=== PATIENT | female | born 1945 | race Caucasian/White ===

== ENCOUNTER → 2019-10-26 12:20 | Outpatient (CLI) | payer MEDICARE, SELFPAY ==
--- NOTE | 2019-10-26 12:40 | ECG_ITS ---
APPROVED REPORT Exam: Resting ECG HR:92 bpm ECG Measurements Heart Rate 92 AXES LA 170 P 9 QRSd 90 QRS -74 QT 378 T 13 QTc 467 <Conclusion> Normal sinus rhythm Left axis deviation Isolated q in iii old r wave progression delay Abnormal ECG Electronically signed by : Norris Livingston, 10/29/2019 07:17:17
[2019-10-26 12:46] LABS: MANUAL DIFFERENTIAL MANUAL DIFFERENTIAL (MANUAL DIFF)
--- NOTE | 2019-10-26 13:04 | XR_ITS ---
PROCEDURE: XR CHEST 2V CLINICAL HISTORY: LT SIDED CHEST PAIN COMPARISON: CXR1 CHEST-PORTABLE from 05/24/2014 CTAC CTA-CHEST from 11/13/2014 CXR CHEST(2 VIEWS-NOT PORTABLE) from 11/19/2014 CXR CHEST(2 VIEWS-NOT PORTABLE) from 05/01/2015 FINDINGS: The cardiomediastinal silhouette and pulmonary vascularity are within normal limits. There is a small hiatal hernia. There is mild biapical pleural thickening. No lobar consolidation or collapse No acute bony abnormalities. IMPRESSION: No change with no acute finding. Small hiatal hernia Dictated by: Chavez Barbosa MD 10/26/2019 13:23 Electronically signed by Chavez Barbosa MD in [place] 10/26/2019 13:23
[2019-10-26 13:09] LABS: Basophils # 0.1 K/mm3 (0-0.2); Basophils % 1.4 % (0.1-2.0); Eosinophils # 0.2 K/mm3 (0.0-0.4); Eosinophils % 3.1 % (0.1-12.0); Hematocrit 42.8 % (37.0-47.0); Lymphocytes # 2.1 K/mm3 (0.7-4.5); Mean Corpuscular HGB Conc 35.2 g/dL (31.8-35.4); Mean Corpuscular Hemoglobin 31.2 pg (27.0-31.2); Mean Corpuscular Volume 88.6 fl (81-99); Mean Platelet Volume 7.1 fl (7.4-10.4); Monocytes # 0.5 K/mm3 (0.1-1.0); Monocytes % 6.4 % (1.7-9.3); Neutrophils # 4.4 K/mm3 (1.8-7.8); Neutrophils % 60.1 % (37.0-80.0); Platelet Count 292 K/mm3 (142-424); Red Blood Count 4.83 M/mm3 (4.20-5.40); Red Cell Distribution Width 13.9 % (11.5-17.5); White Blood Count 7.3 K/mm3 (4.8-10.8)
[2019-10-26 13:32] LABS: Eosinophils % 3 % (0-3); Lymphocytes % 29 % (10-50); Monocytes % 4 % (2-9); Neutrophils % 64 % (42-76); Platelet Estimate Normal; RBC Morphology Normal; Total Cells Counted 100
[2019-10-26 13:33] LABS: Erythrocyte Sedimentation Rate 18 mm/hr (0-30)
[2019-10-26 15:10] LABS: Chloride 101 mmol/L (98-107)
[2019-10-26 15:11] LABS: Potassium 4.2 mmoL/L (3.5-5.1); Sodium 138 mmol/L (136-145)
[2019-10-26 15:13] LABS: Alanine Aminotransferase 14 U/L (12-78); Alkaline Phosphatase 96 U/L (38-126); Aspartate Amino Transferase 24 U/L (14-36); Bilirubin,Total 0.5 mg/dl (0.2-1.3); Blood Urea Nitrogen 15 mg/dl (7-17); Estimated Glomerular Filt Rate 82 ml/min (>60); GFR (African American) 99 ML/MIN (>60)
[2019-10-26 15:14] LABS: Albumin Level 4.4 g/dl (3.5-5.0); Albumin/Globulin Ratio 1.6 (1.1-1.8); Anion Gap 16.2 mEq/L (5-15); Calcium 9.8 mg/dl (8.4-10.2); Carbon Dioxide 25 mmol/L (22.0-30.0); Globulin 2.8 g/dL (1.3-3.2); Glucose 83 mg/dl (74-100); Total Protein,Serum 7.2 g/dl (6.3-8.2)
[2019-10-26 15:20] LABS: C-Reactive Protein 3.2 mg/L (0-4)
[2019-10-26 15:30] LABS: Troponin I < 0.01 ng/ml (0.00-0.034)
[2019-10-26 15:45] LABS: Thyroid Stimulating Hormone 2.68 uIU/mL (0.465-4.68)
== END ==
PROVIDERS: PCP Family Medicine; Visit Provider Nurse Practitioner
DX: R07.9 Chest pain, unspecified (principal)
CPT/HCPCS: 36415; 71046; 80053; 84443; 84484; 85007; 85014; 85018; 85048; 85049; 85651; 86140; 93005

== ENCOUNTER → 2020-02-27 09:34 | Outpatient (CLI) | payer MEDICARE, SELFPAY ==
--- NOTE | 2020-02-27 09:37 | XR_ITS ---
PROCEDURE: XR DEXA AXIAL SKELETON CLINICAL HISTORY: POST MENOPAUSAL COMPARISON: No exams were available for comparison FINDINGS: The right hip BMD is 0.676 with a T-score of -1.6. The left hip BMD is 0.710 with a T-score of -1.9. The lumbar spine BMD is 1.080 with a T-score of 0.3. IMPRESSION: This patient is considered osteopenic according to the World Health Organization criteria. Bone density is between 10 and 25 percent below young normal. Fracture risk is moderate. Treatment is advised. Based on these results a follow-up exam is recommended in 2 year. Dictated by: Chavez Barbosa MD 02/27/2020 19:12 Chavez Barbosa MD in [facility] 02/28/2020 08:10
== END ==
PROVIDERS: PCP Family Medicine; Visit Provider Family Medicine
DX: Z78.0 Asymptomatic menopausal state (principal); M85.89 Other specified disorders of bone density and structure, multiple sites
CPT/HCPCS: 77080

== ENCOUNTER → 2020-04-18 12:15 | Outpatient (CLI) | payer MEDICARE, SELFPAY ==
[2020-04-18 13:45] LABS: Basophils % 1.2 % (0.1-2.0); Eosinophils % 0.5 % (0.1-12.0); Hematocrit 44.2 % (37.0-47.0); Hemoglobin 14.6 g/dL (12.2-16.2); Lymphocytes # 0.7 K/mm3 (0.7-4.5); Lymphocytes % 19.6 % (10-50); Mean Corpuscular HGB Conc 32.9 g/dL (31.8-35.4); Mean Platelet Volume 7.4 fl (7.4-10.4); Monocytes # 0.4 K/mm3 (0.1-1.0); Monocytes % 9.8 % (1.7-9.3); Neutrophils # 2.6 K/mm3 (1.8-7.8); Neutrophils % 68.9 % (37.0-80.0); Platelet Count 221 K/mm3 (142-424); Red Blood Count 4.86 M/mm3 (4.20-5.40); Red Cell Distribution Width 14.1 % (11.5-17.5); White Blood Count 3.8 K/mm3 (4.8-10.8)
[2020-04-18 14:40] LABS: Strep Scrn Group A (Rapid) Negative (Negative)
[2020-04-19 10:02] LABS: Covid-19 Nasal PCR Sendout Lex POSITIVE
== END ==
PROVIDERS: PCP Family Medicine; Visit Provider Nurse Practitioner
DX: Z20.828 Contact with and (suspected) exposure to other viral communicable diseases (principal); U07.1 COVID-19
CPT/HCPCS: 36415; 85025; 87430; U0004

== ENCOUNTER → 2021-01-14 10:13 | Outpatient (CLI) | payer MEDICARE, SELFPAY ==
[2021-01-14 10:46] LABS: Blood Urea Nitrogen 14 mg/dl (7-17); Estimated Glomerular Filt Rate 81 ml/min (>60); GFR (African American) 98 ML/MIN (>60)
--- NOTE | 2021-01-14 10:52 | CT_ITS ---
PROCEDURE: CT ABDOMEN PELVIS W CON CLINICAL INDICATION: LLQ PAIN,H/O DIVERTICULITIS COMPARISON: No exams were available for comparison TECHNIQUE: IV Contrast: 75ML Isovue 370 Oral Contrast None Axial images obtained with sagittal and coronal reformats. All CT scans at the facility use one or more dose reduction, viz: automated exposure control, ma/kV adjustment per patient size (including targeted exams where dose is matched to indication, i.e. head), or iterative reconstruction technique. FINDINGS: LOWER THORAX: No acute finding ABDOMEN & PELVIS: The liver, spleen, pancreas, and adrenal glands are unremarkable. Small bilateral renal cysts with mild prominence of the renal pelves. The gallbladder is distended. No radiopaque stones apparent. Postsurgical changes along the central aspect of the upper abdomen at the subdiaphragmatic region. Prior appendectomy. Extensive colonic diverticulosis is present. No evidence of diverticulitis. Prior hysterectomy. No pelvic mass or abnormal fluid collection.. No acute bony findings. IMPRESSION: No acute finding. Colonic diverticulosis. No evidence of diverticulitis. Dictated by: Chavez Barbosa MD 01/15/2021 08:39 Chavez Barbosa MD in [facility] 01/15/2021 08:39
== END ==
PROVIDERS: PCP Family Medicine; Visit Provider Nurse Practitioner
DX: R10.32 Left lower quadrant pain (principal); Z87.19 Personal history of other diseases of the digestive system
CPT/HCPCS: 36415; 74177; 82565; 84520; Q9967

== ENCOUNTER → 2021-05-30 14:08 | Outpatient (CLI) | payer MEDICARE, SELFPAY ==
[2021-05-30 14:34] LABS: Adenovirus,PCR Not Detected (NotDetected); Bordetella Pertussis Not Detected (NotDetected); Chlamydophila Pneumoniae, PCR Not Detected (NotDetected); Coronavirus 19, PCR Not Detected (NotDetected); Coronavirus 229E Not Detected (NotDetected); Coronavirus NL63 Not Detected (NotDetected); Coronavirus OC43 Not Detected (NotDetected); Coronovirus HKU1,PCR Not Detected (NotDetected); Influenza A, PCR Not Detected (NotDetected); Influenza AH1, 2009 Not Detected (NotDetected); Influenza AH1, PCR Not Detected (NotDetected); Influenza AH3,PCR Not Detected (NotDetected); Influenza B, PCR Not Detected (NotDetected); Mycoplasma Pneumoniae, PCR Not Detected (NotDetected); Parainfluenza 1, PCR Not Detected (NotDetected); Parainfluenza 2, PCR Not Detected (NotDetected); Parainfluenza 3, PCR Not Detected (NotDetected); Parainfluenza 4, PCR Not Detected (NotDetected); Respiratory Syncytial Virus Not Detected (NotDetected); Rhinovirus/Enterovirus Not Detected (NotDetected)
[2021-05-30 14:40] LABS: Basophils # 0.2 K/mm3 (0-0.2); Basophils % 2.8 % (0.1-2.0); Eosinophils # 0.2 K/mm3 (0.0-0.4); Eosinophils % 2.8 % (0.1-12.0); Hematocrit 43.2 % (37.0-47.0); Hemoglobin 13.9 g/dL (12.2-16.2); Lymphocytes % 28.6 % (10-50); Mean Corpuscular HGB Conc 32.2 g/dL (31.8-35.4); Mean Corpuscular Hemoglobin 29.9 pg (27.0-31.2); Mean Corpuscular Volume 92.6 fl (81-99); Mean Platelet Volume 7.4 fl (7.4-10.4); Monocytes # 0.4 K/mm3 (0.1-1.0); Neutrophils # 4.1 K/mm3 (1.8-7.8); Neutrophils % 59.8 % (37.0-80.0); Platelet Count 284 K/mm3 (142-424); Red Blood Count 4.66 M/mm3 (4.20-5.40); Red Cell Distribution Width 13.5 % (11.5-17.5); White Blood Count 6.9 K/mm3 (4.8-10.8)
[2021-05-30 17:25] LABS: Human Metapneumovirus Detected (NotDetected)
== END ==
PROVIDERS: PCP Family Medicine; Visit Provider Physician Assistant
DX: Z20.822 Contact with and (suspected) exposure to COVID-19 (principal); B97.81 Human metapneumovirus as the cause of diseases classified elsewhere
CPT/HCPCS: 36415; 85025; 87581; 87632; 87798; C9803; U0003; U0005

== ENCOUNTER → 2021-06-29 12:48 | Outpatient (CLI) | payer MEDICARE, SELFPAY | PROVIDERS: Visit Provider Nurse Practitioner | DX: U07.1 COVID-19 (principal) | CPT/HCPCS: C9803; U0003; U0005 ==

== ENCOUNTER → 2021-07-31 13:19 | Outpatient (CLI) | payer MEDICARE, SELFPAY ==
--- NOTE | 2021-07-31 13:25 | XR_ITS ---
FINAL REPORT CLINICAL HISTORY: COUGH for 1 month COMPARISON: October 26, 2019 FINDINGS: Two views of the chest were obtained. The heart size and pulmonary vascularity are within normal limits. There is a small hiatal hernia. There is mild bibasilar atelectasis or scarring. There is no pneumothorax. Postoperative changes are seen in the right humeral head. IMPRESSION: Mild bibasilar atelectasis or scarring. Reviewed, Interpreted and Dictated by Marck Glasgow III, MD Transcribed by Antonio Martinez Authenticated by Marck Glasgow III, MD on 07/31/2021 04:18:25 PM [facility]
== END ==
PROVIDERS: PCP Family Medicine; Visit Provider Nurse Practitioner
DX: R05.9 Cough, unspecified (principal)
CPT/HCPCS: 71046

== ENCOUNTER 2021-12-14 10:29 | Emergency (ER) | payer MEDICARE, SELFPAY ==
[2021-12-14 10:36] VITALS: BP 134/61; PULSE 74; RESP 16; TEMP 37.1; O2SAT 98; BMI 25.4
[2021-12-14 10:46] VITALS: BP 134/61; PULSE 74; RESP 16; TEMP 37.1; O2SAT 98; BMI 25.2
--- NOTE | 2021-12-14 11:03 | HMH.EDUTC ---
[facility] [place] Disposition Clinical Impression: Viral syndrome Infected insect bite Qualifiers: Encounter type: initial encounter Qualified Code(s): W57.XXXA - Bitten or stung by nonvenomous insect and other nonvenomous arthropods, initial encounter Disposition: Home, Self-Care Condition on Discharge: Good Instructions: Insect Bites and Stings, Protect Yourself from Tickborne Illnesses Additional Instructions: Keep the affected area clean and dry. Follow up with your regular doctor. Take the antibiotics as directed and apply the topical antibiotics as directed. Apply warm wet compresses to the affected area three or four times per day. GO TO THE ER FOR ANY WORSENING SYMPTOMS Prescriptions: Mupirocin [Bactroban 2% Ointment 22gm tube] 1 applicatio TP TID 7 Days #1 gm Transmission Status: Received by [id number] Doxycycline Monohydrate [Doxycycline Mccracken 100mg Tab] 100 mg PO Q12 10 Days #20 tab Transmission Status: Received by [id number] Referrals: Fernando Matson MD [Primary Care Provider] - Time of Disposition: 11:19 Medical Decision Making - Medical Records Medical records reviewed: No: I reviewed the patient's medical records. - John Paul Inquiry Pt receiving controlled substance: No Vital Signs: 12/14/21 10:36 12/14/21 10:46 12/14/21 11:20 Temperature 98.8 F 98.8 F 98.8 F Temperature Source Oral Oral Oral Pulse Rate 74 Pulse Rate [Brachial] 74 74 Respiratory Rate 16 16 16 Blood Pressure 134/60 Blood Pressure [Right Arm] 134/61 134/61 Blood Pressure Mean [Right Arm] 85 85 Blood Pressure Source Automatic Cuff Blood Pressure Source [Right Arm] Automatic Cuff Blood Pressure Position Sitting Blood Pressure Position [Right Arm] Sitting Sitting 02 Sat by Pulse Oximetry 98 98 Oxygen Delivery Method Room Air Room Air Room Air Orders (Tests/Meds): ED MEDICATIONS Discontinued Medications Generic Name Dose Route Start Last Admin Trade Name Freq PRN Reason Stop Dose Admin Ceftriaxone Sodium 1 gm 12/14/21 11:02 12/14/21 11:16 Ceftriaxone 1gm Vial IM 12/14/21 11:03 1 gm ONCE ONE Administration Lidocaine HCl 0 ml 12/14/21 11:02 12/14/21 11:16 Lidocaine 1% 5ml Pf Vial IM 12/14/21 11:03 2 ml ONCE ONE Administration Medical Decision Narrative: She refused a covid-19 test despite being explained to that some of her symptoms sound to be from a viral infection. [facility] [place] HPI - General Stated complaint: bite on side of right leg, has pain Time Seen by Provider: 12/14/21 11:03 Mode of Arrival: Ambulatory Source of Information: Patient Limitations: No Limitations Description of Symptoms (Recalled from Triage Doc. by RN): pt c/o pain, bug bite rt upper leg, c/o pain shoulders took tylenol without relief HEENT Symptoms (Recalled from RN notes): No Resp Symptoms (Recalled from RN notes): No Skin Symptoms (Recalled from RN notes): Yes (bite on right leg) MS Symptoms (Recalled from RN notes): No Functional Status (Recalled from RN notes): na - History of Present Illness Provider Complaint: She states that for the past 2 days she has had a red area on her right upper leg. She believes that this is an infected insect bite. She also states that she is having generalized malaise and headache. She denies fever. She denies any cough or congestion. - Related Data Home Medications Medication Instructions Recorded Confirmed albuterol sulfate 90 mcg/actuation g IH 12/04/21 12/04/21 aerosol inhaler atorvastatin 10 mg tablet 10 mg PO DAILY tab 12/04/21 12/04/21 fluticasone propionate 50 g NS 12/04/21 12/04/21 mcg/actuation nasal spray,suspension loratadine 10 mg tablet 10 mg PO DAILY tab 12/04/21 12/04/21 Previous Rx's Medication Instructions Recorded hyoscyamine sulfate 0.125 mg tablet 0.125 mg PO QID PRN #60 tab 12/04/21 metronidazole 500 mg tablet 500 mg PO TID #30 tab 12/04/21 Doxycycline Monohydrate 100 mg
[2021-12-14 11:20] VITALS: BP 134/60; PULSE 74; RESP 16; TEMP 37.1; O2SAT 98
== END 2021-12-14 11:25 | disposition home or self-care (01) ==
PROVIDERS: Emergency Provider Nurse Practitioner Family; PCP Family Medicine
DX: B34.9 Viral infection, unspecified (principal); W57.XXXA Bitten or stung by nonvenomous insect and other nonvenomous arthropods, initial encounter; M79.651 Pain in right thigh; M25.511 Pain in right shoulder; M25.512 Pain in left shoulder
CPT/HCPCS: 96372; 99212; G0463; J0696

== ENCOUNTER → 2022-01-12 13:40 | Outpatient (CLI) | payer MEDICARE, SELFPAY ==
[2022-01-12 15:12] LABS: Basophils # 0.1 K/mm3 (0-0.2); Basophils % 1.6 % (0.1-2.0); Eosinophils # 0.2 K/mm3 (0.0-0.4); Eosinophils % 2.6 % (0.1-12.0); Hematocrit 42.3 % (37.0-47.0); Hemoglobin 13.4 g/dL (12.2-16.2); Lymphocytes # 1.2 K/mm3 (0.7-4.5); Lymphocytes % 17.2 % (10-50); Mean Corpuscular HGB Conc 31.7 g/dL (31.8-35.4); Mean Corpuscular Hemoglobin 29.5 pg (27.0-31.2); Mean Corpuscular Volume 93.3 fl (81-99); Mean Platelet Volume 7.7 fl (7.4-10.4); Monocytes # 0.5 K/mm3 (0.1-1.0); Monocytes % 6.9 % (1.7-9.3); Neutrophils # 5.1 K/mm3 (1.8-7.8); Neutrophils % 71.6 % (37.0-80.0); Platelet Count 272 K/mm3 (142-424); Red Blood Count 4.54 M/mm3 (4.20-5.40); Red Cell Distribution Width 13.9 % (11.5-17.5); White Blood Count 7.1 K/mm3 (4.8-10.8)
--- NOTE | 2022-01-12 15:29 | XR_ITS ---
FINAL REPORT CLINICAL HISTORY: COVID TESTING COMPARISON: 07/31/2021 FINDINGS: A single view of the chest was obtained. The heart is normal in size. The mediastinum is unremarkable. There is partially improved aeration of the lung bases. There is persistent mild bibasilar atelectasis or scarring. There is no pleural effusion. There is no pneumothorax. There is presumed postoperative change in the right humeral head. IMPRESSION: Persistent mild bibasilar atelectasis or scarring with partially improved aeration at the lung bases. Reviewed, Interpreted and Dictated by Marck Glasgow III, MD Transcribed by Carolina Cintron Authenticated and [facility]
== END ==
PROVIDERS: PCP Family Medicine; Visit Provider Nurse Practitioner Family
DX: Z20.822 Contact with and (suspected) exposure to COVID-19 (principal)
CPT/HCPCS: 36415; 71045; 85025; C9803; U0003; U0005

== ENCOUNTER → 2022-02-05 16:19 | Outpatient (CLI) | payer MEDICARE, SELFPAY ==
--- NOTE | 2022-02-05 16:25 | XR_ITS ---
PROCEDURE INFORMATION: Exam: XR Cervical Spine Exam date and time: 02/05/2022 4:28 PM Age: 76 years old Clinical indication: Pain; Cervicalgia TECHNIQUE: Imaging protocol: Radiologic exam of the cervical spine. Views: 4 or 5 views. COMPARISON: CR XR CHEST PORTABLE 01/12/2022 3:41 PM FINDINGS: Bones/joints: Cervical spondylosis. Advanced changes of disc degeneration at C5-C6 with prominent posterior osteophytic ridge formation. Moderately severe right C5-C6, mild-moderate right C3-C4 and C4-C5 neural foraminal stenosis. Soft tissues: Unremarkable. IMPRESSION: 1. No evidence of acute osseous injury. 2. Cervical spondylosis with multilevel neural foraminal stenosis most pronounced on the right at C5-C6.
== END ==
PROVIDERS: PCP Family Medicine; Visit Provider Family Medicine
DX: M54.2 Cervicalgia (principal)
CPT/HCPCS: 72050

== ENCOUNTER 2022-02-18 14:12 | Emergency (ER) | payer MEDICARE, SELFPAY ==
[2022-02-18] VITALS (8 sets, daily range): BP systolic 122–177; BP diastolic 69–98; PULSE 63–89; RESP 18; TEMP 36.7; O2SAT 93–97; BMI 25.7
--- NOTE | 2022-02-18 14:07 | ECG_ITS ---
APPROVED REPORT Exam: Resting ECG HR:83 bpm ECG Measurements Heart Rate 83 AXES TX 176 P 12 QRSd 96 QRS -62 QT 388 T 14 QTc 428 Conclusion SINUS RHYTHM LEFT AXIS DEVIATION Late r wave progression - old finding ABNORMAL ECG UNCONFIRMED REPORT Electronically signed by : Norris Livingston MD 02/18/2022 17:41:20
--- NOTE | 2022-02-18 14:22 | XR_ITS ---
FINAL REPORT CLINICAL HISTORY: sob COMPARISON: January 12, 2022 FINDINGS: The heart size is normal. The mediastinum is normal. There is no focal infiltrate or edema. There are no pleural effusions. There is no pneumothorax. There is no osseous abnormality. IMPRESSION: No acute cardiopulmonary process Reviewed, Interpreted and Dictated by Eleazar Prater MD Transcribed by Antonio Martinez Authenticated and [facility]
--- NOTE | 2022-02-18 14:52 | HMH.EDCP ---
Discharge Plan Disposition Patient Disposition: Home, Self-Care Condition: Good Prescriptions Prescriptions: No Action atorvastatin 10 mg tablet 10 mg PO DAILY Label Comments: TAKE 1 TABLET BY MOUTH EVERY DAY FOR 90 DAYS loratadine 10 mg tablet 10 mg PO DAILY Label Comments: TAKE 1 TABLET BY MOUTH EVERY DAY FOR 30 DAYS fluticasone propionate 50 mcg/actuation spray,suspension NS albuterol sulfate 90 mcg/actuation HFA aerosol inhaler IH Label Comments: 2 PUFF(S) INHALED EVERY 6 HOURS AND NEEDED FRO SHORTNESS OF BREATH OR WHEEZING 30 DAY(S) hyoscyamine sulfate 0.125 mg tablet 0.125 mg PO QID PRN (Reason: diarrhea or abdominal cramping) Qty: 60 0RF mupirocin 22 GM ointment 1 applicatio TP TID 7 Days Qty: 1 0RF doxycycline monohydrate 100 MG tablet 100 mg PO Q12 10 Days Qty: 20 0RF Referrals Follow up/Referrals: Provider,Referral, MD [Referring] - See instructions Activity Restrictions/Add. Instructions Additional Instructions/Restrictions: Follow-up with primary care physician within the next few days. Return for worsening pain or any other concerns within 8 hours Clinical Impressions Clinical Impression: Chest pain Discharge ED Provider: Chucho Medina Chest Pain HPI General Chief Complaint: Chest Pain Stated Complaint: chest pain Time Seen by Provider: 02/18/22 14:15 History of Present Illness HPI narrative: 76-year-old female presents with left-sided pleuritic chest pain. She says the pain is intermittent and feels like a spasm is worse when she presses on her chest. No fever or chills however she does have persistent cough for the last day she is concerned that it could be related to bronchitis. Chest pain is nonexertional no diaphoresis. No nausea or vomiting associated with it. Not coughing up blood or history of blood clots. Chest pain is not radiating to back or severe in onset BARBIE Score for Non-Stemi Age of Patient: 70-79 years old Heart Rate: 70-89 bpm Systolic Blood Pressure: 100-119 mmHg CHF Killip Class: I-No CHF Other Risk Factors: None Related Data Home Medications Medication Instructions Recorded Confirmed albuterol sulfate 90 mcg/actuation g inhalation 12/04/21 12/15/21 aerosol inhaler atorvastatin 10 mg tablet 10 mg PO DAILY 12/04/21 12/15/21 fluticasone propionate 50 g intranasal 12/04/21 12/15/21 mcg/actuation nasal spray,suspension loratadine 10 mg tablet 10 mg PO DAILY 12/04/21 12/15/21 Previous Rx's Medication Instructions Recorded hyoscyamine sulfate 0.125 mg tablet 0.125 mg PO QID PRN diarrhea or 12/04/21 abdominal cramping #60 tabs doxycycline monohydrate 100 mg 100 mg PO Q12 10 days #20 tabs 12/14/21 tablet mupirocin 2 % topical ointment 1 applicatio topical TID 7 days ##1 12/14/21 Allergies Allergy/AdvReac Type Severity Reaction Status Date / Time barium iodide [BARIUM IODIDE] Allergy Mild Verified 02/18/22 14:53 BLUEBERRY Allergy Mild Uncoded 12/15/21 15:07 [facility] Social History Smoking Status: Never smoker alcohol intake: never current occupational status: retired Travel in the last 8 weeks: None ROS Obtained: Yes All systems reviewed & no additional complaints except as documented Physical Exam General General appearance: alert and in no apparent distress Eye Eye exam: Present PERRL and EOMI ENT ENT exam: Present normal exam and normal oropharynx Neck Neck exam: Present normal inspection Chest Chest inspection: Present symmetric chest wall rise and other (Tenderness to pressing on chest wall) Respiratory Respiratory exam: Present normal lung sounds bilaterally; Absent respiratory distress Cardiovascular Cardiovascular exam: Present regular rate and normal rhythm Abdominal Exam Abdominal exam: Present soft; Absent distention, tenderness, guarding, rebound, Santiago's sign or tenderness at McBurney's Point Back Exam Back exam: Present normal inspec
[2022-02-18 14:57] LABS: Basophils # 0.1 K/mm3 (0-0.2); Eosinophils # 0.2 K/mm3 (0.0-0.4); Eosinophils % 2.8 % (0.1-12.0); Hematocrit 44.3 % (37.0-47.0); Hemoglobin 14.1 g/dL (12.2-16.2); Lymphocytes # 2.2 K/mm3 (0.7-4.5); Lymphocytes % 31.2 % (10-50); Mean Corpuscular HGB Conc 31.8 g/dL (31.8-35.4); Mean Corpuscular Hemoglobin 29.9 pg (27.0-31.2); Mean Corpuscular Volume 93.9 fl (81-99); Mean Platelet Volume 7.9 fl (7.4-10.4); Monocytes # 0.5 K/mm3 (0.1-1.0); Monocytes % 6.9 % (1.7-9.3); Neutrophils # 3.9 K/mm3 (1.8-7.8); Platelet Count 297 K/mm3 (142-424); Red Blood Count 4.72 M/mm3 (4.20-5.40); Red Cell Distribution Width 14.1 % (11.5-17.5); White Blood Count 6.9 K/mm3 (4.8-10.8)
[2022-02-18 15:00] LABS: Alanine Aminotransferase 19 U/L (12-78); Albumin Level 4.1 g/dl (3.5-5.0); Albumin/Globulin Ratio 1.4 (1.1-1.8); Alkaline Phosphatase 130 U/L (38-126); Aspartate Amino Transferase 32 U/L (14-36); Blood Urea Nitrogen 19 mg/dl (7-17); Calcium 8.7 mg/dl (8.4-10.2); Carbon Dioxide 23 mmol/L (22.0-30.0); Chloride 103 mmol/L (98-107); Estimated Glomerular Filt Rate 70 ml/min (>60); GFR (African American) 84 ML/MIN (>60); Glucose 90 mg/dl (74-100); Sodium 137 mmol/L (136-145); Total Protein,Serum 7.1 g/dl (6.3-8.2)
[2022-02-18 15:03] LABS: Bilirubin,Total < 0.1 mg/dl (0.2-1.3)
[2022-02-18 15:04] LABS: D-Dimer 0.46 ug/mL (0.0-0.5)
[2022-02-18 15:13] LABS: Troponin I < 0.01 ng/ml (0.00-0.034)
== END 2022-02-18 17:31 | disposition home or self-care (01) ==
PROVIDERS: Emergency Provider Emergency Medicine; PCP Family Medicine
DX: R07.9 Chest pain, unspecified (principal)
CPT/HCPCS: 71045; 80053; 84484; 85025; 85378; 93005; 99284

== ENCOUNTER 2022-03-06 17:04 | Emergency (ER) | payer MEDICARE, SELFPAY ==
[2022-03-06 17:20] VITALS: BP 179/83; PULSE 70; RESP 18; TEMP 36.7; O2SAT 98; BMI 25.7
--- NOTE | 2022-03-06 17:29 | CT_ITS ---
PROCEDURE INFORMATION: Exam: CT Lumbar Spine Without Contrast Exam date and time: 03/06/2022 5:40 PM Age: 76 years old Clinical indication: Injury or trauma; Fall; Blunt trauma (contusions or hematomas) TECHNIQUE: Imaging protocol: Computed tomography of the lumbar spine without contrast. Radiation optimization: All CT scans at this facility use at least one of these dose optimization techniques: automated exposure control; mA and/or kV adjustment per patient size (includes targeted exams where dose is matched to clinical indication); or iterative reconstruction. COMPARISON: [employer]/O MRI-L-SPINE W/O 08/27/2016 1:55 PM FINDINGS: Bones/joints: No acute fracture. Normal alignment. Mild multilevel disc bulging resulting in neuroforaminal and central canal narrowing. No significant disc protrusion. No severe spinal canal stenosis. Soft tissues: Unremarkable. IMPRESSION: No acute findings.
--- NOTE | 2022-03-06 17:29 | XR_ITS ---
PROCEDURE INFORMATION: Exam: XR Left Shoulder Exam date and time: 03/06/2022 5:45 PM Age: 76 years old Clinical indication: Injury or trauma; Fall; Blunt trauma (contusions or hematomas); Shoulder; Left TECHNIQUE: Imaging protocol: Radiologic exam of the Left shoulder. Views: 2 or more views. COMPARISON: CR XR CHEST PORTABLE 02/18/2022 2:41 PM FINDINGS: Bones/joints: Degenerative changes about the greater tuberosity with sclerotic areas identified. No acute fracture or dislocation. Soft tissues: Normal. IMPRESSION: No acute findings.
--- NOTE | 2022-03-06 17:29 | XR_ITS ---
PROCEDURE INFORMATION: Exam: XR Left Femur Exam date and time: 03/06/2022 5:52 PM Age: 76 years old Clinical indication: Injury or trauma; Fall; Blunt trauma; Thigh or upper leg; Left TECHNIQUE: Imaging protocol: Radiologic exam of the Left femur. Views: 2 views. COMPARISON: CR XR HIP LT 2-3V W/PELVIS 03/06/2022 5:51 PM FINDINGS: Bones/joints: Total-knee arthroplasty device in place. No hardware complications. No acute fracture. Soft tissues: Unremarkable. IMPRESSION: No acute findings.
--- NOTE | 2022-03-06 17:29 | XR_ITS ---
PROCEDURE INFORMATION: Exam: XR Left Humerus Exam date and time: 03/06/2022 5:47 PM Age: 76 years old Clinical indication: Injury or trauma; Fall; Blunt trauma (contusions or hematomas); Arm, upper; Left TECHNIQUE: Imaging protocol: Radiologic exam of the Left humerus. Views: 2 or more views. COMPARISON: CR XR SHOULDER LT MIN 2V 03/06/2022 5:45 PM FINDINGS: Bones/joints: Osteopenia. Degenerative changes in the proximal humerus about the greater tuberosity. Soft tissues: Normal. IMPRESSION: No acute findings.
--- NOTE | 2022-03-06 17:29 | XR_ITS ---
PROCEDURE INFORMATION: Exam: XR Left Hip Exam date and time: 03/06/2022 5:51 PM Age: 76 years old Clinical indication: Injury or trauma; Fall; Blunt trauma (contusions or hematomas); Bilateral; Hip TECHNIQUE: Imaging protocol: Radiologic exam of the Left hip. Views: 2 or 3 views hip with pelvis when performed. COMPARISON: CT ABDOMEN PELVIS W CON 01/14/2021 11:13 AM FINDINGS: Bones/joints: Unremarkable. No acute fracture. Soft tissues: Unremarkable. IMPRESSION: No acute findings.
--- NOTE | 2022-03-06 17:29 | XR_ITS ---
PROCEDURE INFORMATION: Exam: XR Left Knee Exam date and time: 03/06/2022 5:53 PM Age: 76 years old Clinical indication: Injury or trauma; Fall; Blunt trauma; Knee; Left; Prior surgery TECHNIQUE: Imaging protocol: Radiologic exam of the Left knee. Views: 1 or 2 views. COMPARISON: CR XR FEMUR LT 2V 03/06/2022 5:52 PM FINDINGS: Bones/joints: The knee arthroplasty device in place. No hardware complications. No acute fracture or dislocation. Soft tissues: Normal. IMPRESSION: No acute findings.
--- NOTE | 2022-03-06 17:33 | HMH.EDGENADL ---
Discharge Plan Disposition Patient Disposition: Home, Self-Care Chief Complaint: Fall Prescriptions Prescriptions: No Action atorvastatin 10 mg tablet 10 mg PO DAILY Label Comments: TAKE 1 TABLET BY MOUTH EVERY DAY FOR 90 DAYS loratadine 10 mg tablet 10 mg PO DAILY Label Comments: TAKE 1 TABLET BY MOUTH EVERY DAY FOR 30 DAYS fluticasone propionate 50 mcg/actuation spray,suspension NS albuterol sulfate 90 mcg/actuation HFA aerosol inhaler IH Label Comments: 2 PUFF(S) INHALED EVERY 6 HOURS AND NEEDED FRO SHORTNESS OF BREATH OR WHEEZING 30 DAY(S) hyoscyamine sulfate 0.125 mg tablet 0.125 mg PO QID PRN (Reason: diarrhea or abdominal cramping) Qty: 60 0RF mupirocin 22 GM ointment 1 applicatio TP TID 7 Days Qty: 1 0RF doxycycline monohydrate 100 MG tablet 100 mg PO Q12 10 Days Qty: 20 0RF Referrals Follow up/Referrals: Fernando Matson MD [Primary Care Provider] - See instructions Activity Restrictions/Add. Instructions Additional Instructions/Restrictions: At this time was felt you are safe to be discharged home from the emergency department. If new or worsening symptoms please do not hesitate to return for continued evaluation. Please follow-up with your family doctor within 5 days for continued evaluation of your blood pressure. Clinical Impressions Clinical Impression: Fall, Cervical muscle strain Discharge ED Provider: Cordell High General Adult HPI General Chief complaint: Fall Stated complaint: [id number]@[place] injured L Side and neck Time Seen by Provider: 03/06/22 17:30 Mode of Arrival: Ambulatory Source of Information: Patient Limitations: No Limitations Description of Symptoms (Recalled from ER Triage Doc. by RN): pt to ed c/o left sided pain after falling out of a chair. pt states a chair broke when she sat in it and she fell on her left side on the ground. pt denies hitting her head and denies LOC. pt reports pain in her left arm, left leg and left back. History of Present Illness HPI narrative: Patient is a 76-year-old female presents to the emergency department for evaluation of traumatic injury sustained in a ground-level fall. Patient was sitting down in a plastic chair when she fell onto her left side, no striking of head, no loss of consciousness, denies blood thinners. She is complaining of left posterior neck pain, left lower back pain, left hip pain upon arrival. She has a past medical history of bilateral knee replacement. No other acute complaints at this time. Patient has been ambulatory prior to arrival. Related Data Home Medications Medication Instructions Recorded Confirmed albuterol sulfate 90 mcg/actuation g inhalation 12/04/21 12/15/21 aerosol inhaler atorvastatin 10 mg tablet 10 mg PO DAILY 12/04/21 12/15/21 fluticasone propionate 50 g intranasal 12/04/21 12/15/21 mcg/actuation nasal spray,suspension loratadine 10 mg tablet 10 mg PO DAILY 12/04/21 12/15/21 Previous Rx's Medication Instructions Recorded hyoscyamine sulfate 0.125 mg tablet 0.125 mg PO QID PRN diarrhea or 12/04/21 abdominal cramping #60 tabs doxycycline monohydrate 100 mg 100 mg PO Q12 10 days #20 tabs 12/14/21 tablet mupirocin 2 % topical ointment 1 applicatio topical TID 7 days ##1 12/14/21 Allergies Allergy/AdvReac Type Severity Reaction Status Date / Time barium iodide [BARIUM IODIDE] Allergy Mild Verified 02/18/22 14:53 BLUEBERRY Allergy Mild Uncoded 12/15/21 15:07 PFSH PFS Social History Smoking Status: Never smoker alcohol intake: never current occupational status: retired Travel in the last 8 weeks: None ROS Obtained: Yes All systems reviewed & no additional complaints except as documented Physical Exam General General appearance: alert and in no apparent distress Head Head exam: atraumatic and normocephalic Eye Eye exam: Present PERRL and EOMI ENT ENT exam: Presen
--- NOTE | 2022-03-06 17:44 | PC.NURSE ---
pt to radiology
--- NOTE | 2022-03-06 17:51 | PC.NURSE ---
rad called and states pt is in pain. pt medicated per MAR
--- NOTE | 2022-03-06 18:09 | PC.NURSE ---
pt back from radiology
[2022-03-06 18:19] VITALS: BP 163/80; PULSE 68; RESP 20; O2SAT 98
--- NOTE | 2022-03-06 18:44 | PC.NURSE ---
rounded on pt at this time. no needs voiced. son at bedside
[2022-03-06 19:20] VITALS: BP 142/67; PULSE 84; RESP 18; TEMP 36.8; O2SAT 97
== END 2022-03-06 19:21 | disposition home or self-care (01) ==
PROVIDERS: Emergency Provider Emergency Medicine; PCP Family Medicine
DX: W07.XXXA Fall from chair, initial encounter (principal); S16.1XXA Strain of muscle, fascia and tendon at neck level, initial encounter
CPT/HCPCS: 72131; 73030; 73060; 73502; 73552; 73560; 99284

== ENCOUNTER → 2022-04-03 16:00 | Outpatient (CLI) | payer MEDICARE, SELFPAY ==
--- NOTE | 2022-04-03 16:00 | MR_ITS ---
PROCEDURE INFORMATION: Exam: MR Cervical Spine Without Contrast Exam date and time: 04/03/2022 4:07 PM Age: 76 years old Clinical indication: Neck pain; Additional info: Pain in neck and shoulders TECHNIQUE: Imaging protocol: Magnetic resonance imaging of the cervical spine without contrast. COMPARISON: CR XR CERVICAL SPINE 5V 02/05/2022 4:28 PM FINDINGS: Straightening and reversal of the normal cervical lordosis. Spinal cord normal. Visualized portions of the brain in the posterior fossa is also normal. Annular disk bulge and/or protrusions C3-C4 C5-C6 The signal intensity within the bone marrow is heterogeneous. Correlate regarding etiologies for marrow conversion-this is most commonly anemia. Prior interbody fusion C4-C5 Reactive degenerative endplate changes C5-C6 No marrow edema C2-C3: Central canal and neural foramina are normal. C3-C4: Disc and or osteophytic complex anteriorly mildly effaces the anterior aspect of the thecal sac. Central canal and neural foramina are normal. C4-C5: Central and left paracentral disc protrusion. Central canal and neural foramina are normal. C5-C6: Broad-based annular disc bulge. Flattening of the cord with central canal narrowing. Disc, uncovertebral hypertrophic changes and facet arthropathy narrow the neural foramina moderately so bilateral C6-C7: Central canal and neural foramina are normal. C7-T1: Central canal and neural foramina are normal. IMPRESSION: Prior interbody fusion C4-C5. Central canal narrowing C5-C6. See above.Straightening and reversal of the normal cervical lordosis.
== END ==
PROVIDERS: PCP Specialist; Visit Provider Specialist
DX: M47.22 Other spondylosis with radiculopathy, cervical region (principal); M54.2 Cervicalgia
CPT/HCPCS: 72141; 76376

== ENCOUNTER 2022-04-17 10:00 | Outpatient (RCR) | payer MEDICARE, SELFPAY ==
--- NOTE | 2022-04-07 14:53 | HMH.OTOPEV ---
OT Inpatient Evaluation Rehab OT Outpatient Eval Start: 04/07/22 14:37 Freq: Status: Active Protocol: Document 04/07/22 14:38 SAJI (Rec: 04/07/22 14:53 [id number] E-signed By Fabio Roman, OT Outpatient Therapy Subjective History Subjective History Pt is a 76 year old female who reports to therapy for initial evaluation to bilateral wrists due to CTS. Pt reports she has experienced CTS multiple times (on and off) throughout the last 15 years. She has received injections in the past, but has never had surgical intervention. Pt explains ~3 months ago her neck and shoulders became painful. Approximately 1 month after her neck pain began she started to have pain down bilateral arms and numbness in both hands. Pt does experience more pain and symptoms in right hand. Pt is right hand dominant. Pt is supposed to have a nerve conduction test completed on 04/09/22. Pt did have a cervical MRI that had the following findings: Prior interbody fusion C4-C5. Central canal narrowing C5-C6. Pt does demonstrate with decreased map clerk strength, AROM, and strength in right hand/ wrist. Pt's left wrist AROM and strength are WFL, but she does have numbness in the entire hand intermittently. STG R hand map clerk strength : 35 lbs LTG R hand map clerk strength: 40 lbs STG R hand AROM goals Flex: 65 degrees Ext: 60 degrees LTG R hand AROM Goals Flex: 75 degrees Ext: 70 degrees Chief Complaint Pain,Paresthesia,Weakness, Decreased Safety Trainer Strength,
--- NOTE | 2022-04-10 08:58 | HMH.PTOPEV ---
PT Outpatient Evaluation Rehab PT Outpatient Evaluation Start: 04/07/22 14:34 Freq: Status: Active Protocol: Document 04/02/22 08:01 MAMIE (Rec: 04/10/22 08:58 MAMIE [id number]) E-signed By Nathan Urias, PT Outpatient Therapy Subjective History Subjective History Patient is a 76 year old female presenting to outpatient PT with reports of chronic cervical spine of insidious onset starting approx 3 months ago. Patient reports BUE radicular symptoms to both hands, but is also being seen by OT for B CTS. Comorbidities include hx of HL , B TKA and R RCR. Chief Complaint Pain,Stiff,Paresthesia Symptom Type Ache,Numbness,Tingling Symptoms Relieved By Rest/Positioning,Prescription Meds Symptoms Aggravated By Physical Activity,Lifting Prior Functional Limitations None Current Functional Limitations Reaching,Lifting,Housework, Driving,Sleeping Symptom Description Constant but Variable Level of pain today (0-10) 2 Pain scale - at its best (0-10) 9 Pain scale - at its worst (0-10) 1 Cervical Eval Palpation Cervical Muscles R Upper Trapezius,L Upper Trapezius Cervical/Thoracic Palpation Findings Tenderness Posture Head/C-Spine Posture Sitting Position Extended Head/C-Spine Posture Standing Position Extended Flexibility Deficits Upper Trapezius Muscle Length (R) Moderate Tightness,(L) Moderate Tightness Pectoralis Minor Muscle Length (R) Moderate Tightness,(L) Moderate Tightness Passive Joint Mobility Cervical PIVM Dec: R OA L OA R AA L AA R C2/3 L C2/3 R C3/4 L C3/4 R C4/5 L C4/5 R C5/6 L C5/6 R C6/7 L C6/7 R C7/T1 L C7/T1 AROM Cervical Spine Extension Active Range of 52 Motion (degrees) Cervical Spine Flexion Active Range of 42 Motion (degrees)
== END 2022-04-17 10:05 | disposition home or self-care (01) ==
LOC: OT 10:00
PROVIDERS: PCP Specialist; Visit Provider Specialist
DX: M47.22 Other spondylosis with radiculopathy, cervical region (principal); M25.512 Pain in left shoulder; M25.511 Pain in right shoulder; G56.03 Carpal tunnel syndrome, bilateral upper limbs
CPT/HCPCS: 97010; 97014; 97035; 97140; 97163; 97166; G0283

== ENCOUNTER 2022-04-17 11:00 | Outpatient (RCR) | payer MEDICARE, SELFPAY ==
--- NOTE | 2022-04-02 14:03 | HMH.PTOPEV ---
PT Outpatient Evaluation Rehab PT Outpatient Evaluation Start: 04/02/22 13:33 Freq: Status: Active Protocol: Document 04/02/22 13:35 MAMIE (Rec: 04/02/22 14:03 MAMIE [id number]) E-signed By Nathan Urias, PT Outpatient Therapy Subjective History Subjective History Patient is a 76 year old female presenting to outpatient PT with reports of sub-acute cervical spine pain with BUE radicular symptoms starting approximately 3 months ago. Most recent cervical spine imaging indicates foraminal stenosis. Symptoms of insidious onset. Comrobidities include hx of HL, B TKA, hernia and R RCR. Chief Complaint Pain,Stiff,Paresthesia Symptom Type Ache Symptoms Relieved By Rest/Positioning,Prescription Meds Symptoms Aggravated By Lifting Prior Functional Limitations None Current Functional Limitations Reaching,Lifting,Housework, Driving,Sleeping Symptom Description Constant but Variable Level of pain today (0-10) 2 Pain scale - at its best (0-10) 1 Pain scale - at its worst (0-10) 9 Cervical Eval Palpation Cervical Muscles R Upper Trapezius,L Upper Trapezius Cervical/Thoracic Palpation Findings Tenderness Posture Head/C-Spine Posture Sitting Position C-Spine Flattened Head/C-Spine Posture Standing Position C-Spine Flattened Flexibility Deficits Upper Trapezius Muscle Length (R) Moderate Tightness,(L) Moderate Tightness Levaetor Scapulae Muscle Length (R) Moderate Tightness,(L) Moderate Tightness Pectoralis Minor Muscle Length (R) Moderate Tightness,(L) Moderate Tightness Passive Joint Mobility Cervical PIVM Dec: R OA L OA R AA L AA R C2/3 L C2/3 R C3/4 L C3/4 R C4/5 L C4/5 R C5/6 L C5/6 R C6/7 L C6/7 R C7/T1 L C7/T1 AROM
== END 2022-04-17 11:05 | disposition home or self-care (01) ==
LOC: PT 11:00
PROVIDERS: PCP Specialist; Visit Provider Specialist
DX: M47.22 Other spondylosis with radiculopathy, cervical region (principal)
CPT/HCPCS: 97010; 97012; 97014; 97035; 97110; 97140; 97163; G0283

== ENCOUNTER → 2022-04-29 13:56 | Outpatient (POV) | payer MEDICARE, SELFPAY ==
--- NOTE | 2022-04-29 14:16 | EXP.PAIN.OV ---
HPI Data of Consult Patient: new to practice Consult date: 04/29/22 Requesting Physician: Deyanira Dacosta APRN Primary Care Provider: Fernando Matson MD Consult Narrative Reason for consult: Neck pain History of present illness: Ms. Cordova is a 76 year old female who presents today as a new patient. She is a referral from Dr. Kenney's office. Today she rates her pain a 9 out of 10. Patient states her pain is along her upper back/neck that radiates into her shoulders and arms. Patient describes this as a aching, throbbing sensation that is worse with increased activity or range of motion. Patient states this is been going on for approximately 6 months and does not correlate with any accidents or falls. Patient states that just 1 day she noticed increased pain and popping sensations with range of motion of her bilateral arms/shoulders. Patient states the pain has progressively worsened over time. Patient did state that she recently had a [place] She states that screws came out of a chair she was sitting in and she fell on her left side. Patient does not have any history of back surgery. Patient states that she will occasionally take ibuprofen if pain is really bad however that is very rare that she takes it. Patient has not tried any creams. Patient states heat and ice have not made any difference and that she is currently seeing physical therapy however it has worsened her pain symptoms. Patient states she does have a history of carpal tunnel syndrome however since she is retired the last 12 years or so it has not been any issue. Patient states she has had a lumbar epidural steroid injection in the past that provided significant improvement of her symptoms and has continued to help over the last 6 to 7 years. Patient states that Dr. Kenney also sent her to Dr. Dacosta here at [facility] for possible injective therapy for her arthritis in her hands however she was unsure if she wanted him to proceed with that option and she is not interested in surgery. Patient is not currently on any scheduled medications. Her John Paul is [phone]. It has been reviewed and appropriate. CC: Deyanira Dacosta APRN [facility] Disclaimer: The information contained in this section may have been updated after the patient was seen, as this information can be updated by other users. Family History (Updated 03/30/22 @ 09:24 by Keri Harding) Other Cancer Coronary artery disease Heart attack Hypertension Stroke Social History (Updated 03/30/22 @ 09:24 by Keri Harding) Smoking Status: Never smoker alcohol intake: never substance use type: denies use current occupational status: retired Travel in the last 8 weeks: None Review of Systems Review of Systems Review of systems:: pertinent systems reviewed and negative unless documented below Review of systems (narrative): Review of Systems: General: No recent weight changes, no fever, no sleep disturbances Respiratory: No cough, no shortness of air, no recurring pulmonary infections Cardiovascular/peripheral vascular: No chest pain, no palpitations, no edema, no shortness of breath Gastrointestinal: No new onset incontinence, normal bowel movements reported Genitourinary: No new onset incontinence Musculoskeletal: Upper back/neck pain Psychiatric: [Normal mood/affect] Neurological: [Denies weakness in extremities], [denies balance issues] Meds Home Medications and Allergies Home Medications Medication Instructions Recorded Confirmed Type atorvastatin 10 mg tablet 10 mg PO DAILY 12/04/21 04/20/22 History hyoscyamine sulfate 0.125 mg tablet 0.125 mg PO QID PRN diarrhea or 12/04/21 04/20/22 Rx abdominal cramping #60 tabs loratadine 10 mg tablet 10 mg PO DAILY 12/04/21 04/20/22 History fluticasone propionate 50 1 spray intranasal DAILY 03/30/22 04/20/22 History mcg/actuation nasal spray,suspension New Prescriptions to Start Presc
[2022-04-29 14:19] VITALS: BP 146/72; PULSE 85; RESP 18; O2SAT 94; BMI 26.2
== END ==
PROVIDERS: PCP Family Medicine; Visit Provider Nurse Practitioner Family
DX: M50.10 Cervical disc disorder with radiculopathy, unspecified cervical region (principal); M47.22 Other spondylosis with radiculopathy, cervical region; M51.36 Other intervertebral disc degeneration, lumbar region; Z79.899 Other long term (current) drug therapy
CPT/HCPCS: 99202; G0463

== ENCOUNTER 2022-05-05 11:52 | Day surgery (SDC) | payer MEDICARE, SELFPAY ==
[2022-05-05 12:06] VITALS: BP 159/77; PULSE 82; RESP 18; TEMP 36.7; O2SAT 100; BMI 26.1
[2022-05-05 12:32] VITALS: BP 165/91; PULSE 76; RESP 18; O2SAT 99
--- NOTE | 2022-05-05 14:31 | P.PCN_ITS ---
Procedure Date: 05/05/22 Time: 12:00 Anesthesiologist:: Rashaad Be CRNA Complications:: None Pre-procedure Diagnosis:: Degenerative disc disease cervical spine multilevels. Cervical radiculopathy Post-procedure Diagnosis:: Same. Indications for Procedure:: Very pleasant 76-year-old female that comes our clinic today for cervical epidural steroid injection. Patient complains of posterior cervical neck pain as well as bilateral arm radicular symptoms at times. She rates pain 7/10. Procedure Details:: Procedure:Cervical epidural steroid injection Informed consent was obtained and the risks and benefits of the procedure were explained to the patient. The patient was taken to the procedure room and noninvasive monitors placed, including noninvasive blood pressure cuff and pulse oximeter. The neck was prepped using Chloraprep as a cleansing solution. The C6- C7 interspace was viewed using fluroscopy. The skin and subcutaneous tissues were anesthetized using lidocaine 1.5% and a 25-gauge needle. After this an 18- gauge Touhy epidural needle was placed into the C6-C7 interspace under fluroscopy guidance and advanced using loss of resistance to air until the epidural space was encountered. After confirmation of needle placement in the epidural space using contrast dye, a solution containing normal saline, 2 mL and Depo-Medrol 80 mg was incrementally injected into the cervical epidural space.~ The patient tolerated the procedure well with no complications. The patient was observed in the Pain Clinic and then discharged home neurologically intact. Plan and Disposition:: Patient was discharged without incident.
== END 2022-05-05 12:32 | disposition home or self-care (01) ==
LOC: SC.PAINP 11:52
PROVIDERS: PCP Family Medicine; Visit Provider Nurse Anesthetist, Certified Registered
DX: M50.123 Cervical disc disorder at C6-C7 level with radiculopathy (principal); M47.22 Other spondylosis with radiculopathy, cervical region
CPT/HCPCS: 62321; J1040

== ENCOUNTER → 2022-05-21 11:27 | Outpatient (POV) | payer MEDICARE, SELFPAY ==
[2022-05-21 11:55] VITALS: BP 142/84; PULSE 77; RESP 18; O2SAT 99; BMI 26.1
--- NOTE | 2022-05-21 15:20 | EXP.PAIN.SOA ---
[facility] Pain Management SOAP Note Subjective:: Patient is a pleasant 76-year-old female who presents today for follow-up after a cervical epidural steroid injection at C6-7 on 05/05/2022. Patient is currently being treated for degenerative disc disease of cervical spine with cervical radiculopathy symptoms. After the injection, patient states that she had 100% relief of pain and rates her pain today as 0 out of 10. She has been able to increase her activity since the injection. She has no other complaints today. Review of Systems: General: No recent weight changes, no fever, no sleep disturbances Respiratory: No cough, no shortness of air, no recurring pulmonary infections Cardiovascular/peripheral vascular: No chest pain, no palpitations, no edema, no shortness of breath Gastrointestinal: No new onset incontinence, normal bowel movements reported Genitourinary: No new onset incontinence Musculoskeletal: Improving neck pain Psychiatric: [Normal mood/affect] Neurological: [Denies weakness in extremities], [denies balance issues] Objective:: Physical Exam: General: Alert and oriented x3, no acute distress, pleasant and cooperative Lungs: Respirations even and unlabored, symmetrical chest expansion Eyes: PERRL Musculoskeletal: Flexion and extension of cervical [spine] somewhat guarded secondary to pain, [antalgic gait noted] Neurological: Speech clear, no gross sensory deficit Assessment:: Degenerative disc disease of the cervical spine with cervical radiculopathy symptoms Plan:: Patient continues have significant relief after her cervical epidural steroid injection. Follow-up in 3 months. Patient has been instructed to contact the clinic with any concerns before the next appointment. Dr. Carvalho has reviewed this note and agrees with this plan of care. This note was dictated using voice recognition software and make contain errors or omissions. [facility] Disclaimer: The information contained in this section may have been updated after the patient was seen, as this information can be updated by other users. Medical History Degenerative disc disease HLD (hyperlipidemia) Family History Other Cancer Coronary artery disease Heart attack Hypertension Stroke Social History Smoking Status: Never smoker alcohol intake: never substance use type: denies use current occupational status: retired Travel in the last 8 weeks: None
== END ==
PROVIDERS: PCP Family Medicine; Visit Provider Student in an Organized Health Care Education/Training Program
DX: M50.10 Cervical disc disorder with radiculopathy, unspecified cervical region (principal)
CPT/HCPCS: 99212; G0463

== ENCOUNTER → 2022-08-20 09:10 | Outpatient (POV) | payer MEDICARE, SELFPAY ==
[2022-08-20 09:44] VITALS: BP 151/85; PULSE 74; RESP 18; O2SAT 98; BMI 29.8
--- NOTE | 2022-08-20 10:29 | EXP.PAIN.SOA ---
[facility] Pain Management SOAP Note Subjective:: Patient is a pleasant 77-year-old female who presents today for follow-up. We are currently treating the patient for degenerative disc disease of cervical spine with cervical radiculopathy symptoms, shoulder pain. Today she rates her pain a 6 out of 10. She states that her shoulder and neck has done much better following her last cervical epidural back in April. She does state that she recently woke up in the middle the night due to a throbbing sensation in her low back that radiates down into her right leg down to her foot. Patient denies any specific injury or trauma. She does state this pain causes significant impairment in her ability to perform activities of daily living such as cooking and cleaning. She also states it is worsened by increased activity or prolonged standing, walking. She did recently go to her primary care doctor who did prescribe oral steroids however she states that she is only taken 1 dose due to it just getting received by the pharmacy yesterday around 5. She states she has not noticed significant improvement at this time. Patient denies any symptoms into her left leg. She does use [id number] medications such as Tylenol and ibuprofen. She is also prescribed compounding cream. Her John Paul is [phone]. Its been reviewed and appropriate. Review of Systems: General: No recent weight changes, no fever, no sleep disturbances Respiratory: No cough, no shortness of air, no recurring pulmonary infections Cardiovascular/peripheral vascular: No chest pain, no palpitations, no edema, no shortness of breath Gastrointestinal: No new onset incontinence, normal bowel movements reported Genitourinary: No new onset incontinence Musculoskeletal: Low back pain, right leg pain Psychiatric: [Normal mood/affect] Neurological: [Denies weakness in extremities], [denies balance issues] Objective:: Physical Exam: General: Alert and oriented x3, no acute distress, pleasant and cooperative Lungs: Respirations even and unlabored, symmetrical chest expansion Eyes: PERRL Musculoskeletal: Flexion and extension of lumbar [spine] somewhat guarded secondary to pain, [antalgic gait noted] Neurological: Speech clear, no gross sensory deficit Assessment:: Degenerative disc disease of cervical spine with cervical radiculopathy symptoms, shoulder pain, low back pain, lumbar radiculopathy symptoms Plan:: Patient is experiencing significant pain in her low back with radiating symptoms into her right leg. Patient did have limited range of motion of her lumbar spine during today's visit. Her previous CT from 2021 did show degenerative disc disease of lumbar spine multilevels with multilevel bulging disc, neuroforaminal narrowing and central canal stenosis. I have discussed with the patient that she may benefit from a right transforaminal epidural steroid injection. Risk and benefits were discussed with the patient and she would like to proceed forward with this plan of care. Patient is not on any blood thinners. We will schedule the patient for a right transforaminal epidural steroid injection of L4-L5 and L5-S1. Patient has been instructed to contact the clinic with any concerns before the next appointment. Dr. Carvalho has reviewed this note and agrees with this plan of care. This note was dictated using voice recognition software and make contain errors or omissions. [facility] Disclaimer: The information contained in this section may have been updated after the patient was seen, as this information can be updated by other users. Medical History Degenerative disc disease HLD (hyperlipidemia) Family History Other Cancer Coronary artery disease Heart attack Hypertension Stroke Social History Smoking Status: Never smoker
== END ==
PROVIDERS: PCP Family Medicine; Visit Provider Nurse Practitioner Family
DX: M50.10 Cervical disc disorder with radiculopathy, unspecified cervical region (principal); M25.519 Pain in unspecified shoulder
CPT/HCPCS: 99212; G0463

== ENCOUNTER 2022-09-01 07:49 | Day surgery (SDC) | payer MEDICARE, SELFPAY ==
[2022-09-01 08:21] VITALS: BP 142/75; PULSE 78; RESP 18; TEMP 36.4; O2SAT 98; BMI 26.6
[2022-09-01 08:33] VITALS: BP 176/91; PULSE 68; RESP 18; O2SAT 98
[2022-09-01 08:34] VITALS: BP 176/91; PULSE 68; RESP 18; O2SAT 98
--- NOTE | 2022-09-01 08:39 | P.PCN_ITS ---
Procedure Date: 09/01/22 Time: 08:20 Anesthesiologist:: Rashaad Be CRNA Complications:: None Pre-procedure Diagnosis:: Degenerative disc disease lumbar spine multilevels. Lumbar radiculopathy. Lumbar spondylolisthesis 455 S1. Lumbar spondylosis Post-procedure Diagnosis:: Same. Indications for Procedure:: This patient is a pleasant 77-year-old female who presents today for right L4-5 and L5-S1 transforaminal epidural steroid injection. She has had some degree of success with interlaminar epidural steroid injection at the L4-5 level. She complains of low back pain as well is right hip and leg radicular symptoms that she describes as constant, dull, sharp and stabbing at times. She rates her pain 7/10. Procedure Details:: Details of the procedure were explained to the patient. The patient was taken the procedure room placed in the prone position. The area of the lumbar spine was cleansed using chlorhexidine as a cleansing solution. At this time using fluoroscopy guidance markers were placed on the right lateral border of the L4 and L5 vertebral body. The skin and subcutaneous tissue was anesthetized using 1% lidocaine and 25-gauge needle. At this time using a 22-gauge 3-1/2 inch spinal needle the right upper one third of the L4-5 foramen was accessed. The same was done at the right L5-S1 foramen. Needle positions were confirmed and a lateral view using fluoroscopy and contrast dye. At this time 1 cc of 1% lidocaine +20 mg of Depo-Medrol was injected at each level after negative aspiration. [place] were removed. Band-Aid applied. Patient tolerated the procedure without difficulty. There are no complications. Plan and Disposition:: Patient was discharged without incident.
[2022-09-01 08:40] VITALS: BP 143/68; PULSE 66; RESP 18; TEMP 36.4; O2SAT 98
== END 2022-09-01 08:40 | disposition home or self-care (01) ==
PROVIDERS: PCP Family Medicine; Visit Provider Nurse Anesthetist, Certified Registered
DX: M51.16 Intervertebral disc disorders with radiculopathy, lumbar region (principal); M47.26 Other spondylosis with radiculopathy, lumbar region
CPT/HCPCS: 64483; 64484; J1030

== ENCOUNTER → 2022-09-18 07:53 | Outpatient (POV) | payer MEDICARE, SELFPAY ==
[2022-09-18 08:06] VITALS: BP 137/93; PULSE 66; RESP 18; O2SAT 97; BMI 26.1
--- NOTE | 2022-09-18 08:41 | A.OFFVIS_ITS ---
[facility] Pain Management SOAP Note Subjective:: This patient is a very pleasant 77-year-old female that returns our clinic today for follow-up visit after receiving right lumbar L4-5 and L5-S1 transforaminal epidural steroid injection on 09/01/2022. Patient reports 100% improvement in terms of her right hip and leg radicular symptoms. Patient reports being able to ambulate with no pain. She has no difficulty with flexion, extension, left and right rotation. She is very pleased with her outcome. Objective:: Patient is awake alert Miller x3. In no acute distress. Flexion-extension lumbar spine normal. Deep tendon reflexes upper and lower extremities normal. Motor strength upper and lower extremities normal. There is no gross sensory deficit. Gait is normal. Assessment:: Degenerative disc disease lumbar spine multilevels. Lumbar radiculopathy. Multilevel disc bulge L4-5, L5-S1. Plan:: Patient will return to see us as needed. [facility] Disclaimer: The information contained in this section may have been updated after the patient was seen, as this information can be updated by other users. Medical History Degenerative disc disease HLD (hyperlipidemia) Family History Other Cancer Coronary artery disease Heart attack Hypertension Stroke Social History (Updated 09/01/22 @ 08:22 by Ania Jarrell RN) Smoking Status: Never smoker alcohol intake: never substance use type: denies use current occupational status: retired Travel in the last 8 weeks: None
== END ==
PROVIDERS: PCP Family Medicine; Visit Provider Nurse Anesthetist, Certified Registered
DX: M51.16 Intervertebral disc disorders with radiculopathy, lumbar region (principal)
CPT/HCPCS: 99212; G0463

== ENCOUNTER 2022-11-08 13:47 | Emergency (ER) | payer MEDICARE, SELFPAY ==
[2022-11-08 13:47] VITALS: BP 150/84; PULSE 84; RESP 16; TEMP 36.5; O2SAT 98; BMI 27.4
[2022-11-08 13:52] VITALS: BP 150/84; PULSE 79; O2SAT 97
--- NOTE | 2022-11-08 13:53 | HMH.EDGENADL ---
Discharge Plan Disposition Patient Disposition: Home, Self-Care Prescriptions Prescriptions: New amoxicillin-pot clavulanate 875-125 mg tablet 1 tab PO BID 10 Days Qty: 20 0RF No Action atorvastatin 10 mg tablet 10 mg PO DAILY Label Comments: TAKE 1 TABLET BY MOUTH EVERY DAY FOR 90 DAYS hyoscyamine sulfate 0.125 mg tablet 0.125 mg PO QID PRN (Reason: diarrhea or abdominal cramping) Qty: 60 0RF fluticasone propionate 50 mcg/actuation spray,suspension 1 spray NS DAILY loratadine 10 mg tablet See Rx Instructions .ROUTE .COMPLEX Rx Instructions: TAKE 1 TABLET BY MOUTH EVERY DAY FOR 30 DAYS Referrals Follow up/Referrals: Thaddeus Sparrow MD [Physician] - See instructions (within 1 week ) Fernando Matson MD [Primary Care Provider] - See instructions Activity Restrictions/Add. Instructions Additional Instructions/Restrictions: Your diagnosis is parotitis which is nonspecific at this point your viral testing was negative we will treat for bacterial causes but she will need to follow-up with the ENT doctor to ensure follow-up. Return with any worsening concerns or symptoms. Clinical Impressions Clinical Impression: Acute parotitis Discharge ED Provider: Angelica Lr General Adult HPI General Chief complaint: PAIN Stated complaint: LT facial pain w/inflammation Time Seen by Provider: 11/08/22 13:53 History of Present Illness HPI narrative: Patient is a 77-year-old female presenting with acute left lateral face and neck swelling. She states that this has begun within the last 24 hours relatively suddenly that started about 3 hours ago. She has had some malaise over the last week but no specific symptoms to go to the doctor for she states. No dental pain and no purulent drainage in her mouth she states no history of stones or salivary ducts. No fevers or chills. Related Data Home Medications Medication Instructions Recorded Confirmed atorvastatin 10 mg tablet 10 mg PO DAILY Cholesterol 12/04/21 09/18/22 fluticasone propionate 50 1 spray intranasal DAILY ALLERGIES 03/30/22 09/18/22 mcg/actuation nasal spray,suspension loratadine 10 mg tablet See Rx Instructions .Route 08/20/22 09/18/22 .COMPLEX ALLERGIES Previous Rx's Medication Instructions Recorded hyoscyamine sulfate 0.125 mg tablet 0.125 mg PO QID PRN diarrhea or 12/04/21 abdominal cramping #60 tabs amoxicillin 875 mg-potassium 1 tab PO BID 10 days #20 tabs 11/08/22 clavulanate 125 mg tablet Allergies Allergy/AdvReac Type Severity Reaction Status Date / Time barium iodide [BARIUM IODIDE] Allergy Mild Verified 05/05/22 12:06 [facility] Disclaimer: The information contained in this section may have been updated after the patient was seen, as this information can be updated by other users. Medical History (Updated 11/08/22 @ 16:08 by Angelica Lr MD) Degenerative disc disease HLD (hyperlipidemia) Family History Other Cancer Coronary artery disease Heart attack Hypertension Stroke Social History (Updated 09/01/22 @ 08:22 by Ania Jarrell, AMILCAR) Smoking Status: Never smoker alcohol intake: never substance use type: denies use current occupational status: retired Travel in the last 8 weeks: None ROS Obtained: Yes All systems reviewed & no additional complaints except as documented Physical Exam General General appearance: alert Expanded Head Exam Head exam physical: Present other (Patient has left-sided facial and angle of mandible swelling extending in the lateral aspect of the neck with some tenderness no erythema or warmth intraorally there is no obvious dental infection and there is also no purulent drainage coming from salivary ducts no palpable salivary stones) Respiratory Respiratory exam: Present normal lung sounds bilaterally; Absent respiratory distress Cardiovascular Cardiovascular ex
[2022-11-08 14:00] VITALS: BP 142/70; PULSE 82; O2SAT 94
--- NOTE | 2022-11-08 14:02 | CT_ITS ---
PROCEDURE INFORMATION: Exam: CT Neck With Contrast Exam date and time: 11/08/2022 3:03 PM Age: 77 years old Clinical indication: Mass, lump, or swelling in neck; Left; Additional info: Left neck and face swelling <24 hours-- left side from ear down TECHNIQUE: Imaging protocol: Computed tomography of the neck with contrast. Radiation optimization: All CT scans at this facility use at least one of these dose optimization techniques: automated exposure control; mA and/or kV adjustment per patient size (includes targeted exams where dose is matched to clinical indication); or iterative reconstruction. Contrast material: ISOVUE; Contrast volume: 75 ml; Contrast route: IV; REPORTING DATA: Count of CT and Cardiac NM exams in prior 12 months: This patient has received [address] and 0 known cardiac nuclear medicine studies in the 12 months prior to the current study. COMPARISON: MR CERVICAL SPINE WO CON 04/03/2022 4:07 PM FINDINGS: Mastoid air cells: Trace left mastoid effusion, nonspecific. Paranasal sinuses: No air-fluid levels. Pharynx: Unremarkable. Larynx: Unremarkable. Prevertebral and retropharyngeal spaces: Unremarkable. Salivary glands: Left parotid gland is diffusely edematous. No evidence of salivary ductal dilatation or sialoliths. The remaining solid organs are unremarkable. Thyroid: Subcentimeter right thyroid nodules. No follow-up is recommended per current guidelines. (Reference: Russell) Lymph nodes: Unremarkable. Trachea: Unremarkable as visualized. Lungs: No emergent findings or suspicious mass/lesions in the visulized upper thorax. Bones/joints: No evidence of acute osseous abnormality. Soft tissues: No subcutaneous emphysema or focal fluid collection. IMPRESSION: 1. Acute left parotiditis. No evidence of soft tissue abscess or deep space soft tissue infection. 2. Trace left mastoid effusion, nonspecific. COMMENTS: Consistent with the [employer]'s Incidental Findings Committee white paper (J Am Su Radiol 2015): In patients aged 35 years and older with an incidental thyroid nodule equal to or greater than 1.[address], MRI or extrathyroidal US, further evaluation with dedicated thyroid US is recommended for patients with normal life expectancy and without comorbidities. For smaller nodules without suspicious features, no further evaluation or follow up is recommended. REFERENCES: Otis Wells, et al. (2015). Managing Incidental Thyroid Nodules Detected on Imaging: White Paper of the A[employer] Incidental Thyroid Findings Committee. Journal of the [employer], 12(2), 143-150.
[2022-11-08 14:27] LABS: Adenovirus,PCR Not Detected (NotDetected); Bordetella Pertussis Not Detected (NotDetected); Chlamydophila Pneumoniae, PCR Not Detected (NotDetected); Coronavirus 19, PCR Not Detected (NotDetected); Coronavirus 229E Not Detected (NotDetected); Coronavirus NL63 Not Detected (NotDetected); Coronavirus OC43 Not Detected (NotDetected); Coronovirus HKU1,PCR Not Detected (NotDetected); Human Metapneumovirus Not Detected (NotDetected); Influenza A, PCR Not Detected (NotDetected); Influenza AH1, 2009 Not Detected (NotDetected); Influenza AH1, PCR Not Detected (NotDetected); Influenza AH3,PCR Not Detected (NotDetected); Influenza B, PCR Not Detected (NotDetected); Mycoplasma Pneumoniae, PCR Not Detected (NotDetected); Parainfluenza 1, PCR Not Detected (NotDetected); Parainfluenza 2, PCR Not Detected (NotDetected); Parainfluenza 3, PCR Not Detected (NotDetected); Parainfluenza 4, PCR Not Detected (NotDetected); Respiratory Syncytial Virus Not Detected (NotDetected); Rhinovirus/Enterovirus Not Detected (NotDetected)
[2022-11-08 14:29] LABS: Basophils # 0.1 K/mm3 (0-0.2); Basophils % 0.7 % (0.1-2.0); Chloride 103 mmol/L (98-107); Eosinophils # 0.1 K/mm3 (0.0-0.4); Eosinophils % 1.8 % (0.1-12.0); Hematocrit 42.5 % (37.0-47.0); Hemoglobin 13.7 g/dL (12.2-16.2); Lymphocytes # 1.5 K/mm3 (0.7-4.5); Lymphocytes % 18.8 % (10-50); Mean Corpuscular HGB Conc 32.1 g/dL (31.8-35.4); Mean Corpuscular Hemoglobin 29.1 pg (27.0-31.2); Mean Corpuscular Volume 90.6 fl (81-99); Mean Platelet Volume 7.6 fl (7.4-10.4); Monocytes # 0.4 K/mm3 (0.1-1.0); Monocytes % 5.6 % (1.7-9.3); Neutrophils # 5.7 K/mm3 (1.8-7.8); Neutrophils % 73.1 % (37.0-80.0); Platelet Count 267 K/mm3 (142-424); Red Cell Distribution Width 13.7 % (11.5-17.5); Sodium 139 mmol/L (136-145); White Blood Count 7.8 K/mm3 (4.8-10.8)
[2022-11-08 14:30] LABS: Potassium 3.6 mmoL/L (3.5-5.1)
[2022-11-08 14:32] LABS: Alanine Aminotransferase 21 U/L (12-78); Alkaline Phosphatase 109 U/L (38-126); Aspartate Amino Transferase 28 U/L (14-36); Bilirubin,Total 0.4 mg/dl (0.2-1.3); Blood Urea Nitrogen 16 mg/dl (7-17); Creatinine Clearance Estimated 55 mL/min (50-200); Estimated Glomerular Filt Rate 69 ml/min (>60); GFR (African American) 84 ML/MIN (>60)
[2022-11-08 14:33] LABS: Albumin/Globulin Ratio 1.3 (1.1-1.8); Anion Gap 14.6 mEq/L (5-15); Calcium 8.8 mg/dl (8.4-10.2); Carbon Dioxide 25 mmol/L (22.0-30.0); Globulin 3.1 g/dL (1.3-3.2); Glucose 139 mg/dl (74-100); Total Protein,Serum 7.1 g/dl (6.3-8.2)
--- NOTE | 2022-11-08 15:03 | PC.NURSE ---
SAUD CHECKED ON PT
[2022-11-08 15:30] VITALS: BP 135/65; PULSE 63; O2SAT 97
--- NOTE | 2022-11-08 15:44 | PC.NURSE ---
SAUD ROUNDED ON PT
[2022-11-08 16:15] VITALS: BP 124/85; PULSE 82; RESP 20; TEMP 36.6; O2SAT 98
== END 2022-11-08 16:16 | disposition home or self-care (01) ==
PROVIDERS: Emergency Provider Student in an Organized Health Care Education/Training Program; PCP Family Medicine
DX: R22.0 Localized swelling, mass and lump, head (principal); R22.1 Localized swelling, mass and lump, neck; K11.8 Other diseases of salivary glands; E78.5 Hyperlipidemia, unspecified; M51.36 Other intervertebral disc degeneration, lumbar region
CPT/HCPCS: 70491; 80053; 85025; 87581; 87632; 87635; 87798; 96360; 99284; 99285; C9803; Q9967; U0003; U0005

== ENCOUNTER 2023-04-13 08:02 | Emergency (ER) | payer MEDICARE, SELFPAY ==
[2023-04-13] VITALS (11 sets, daily range): BP systolic 121–172; BP diastolic 61–87; PULSE 77–108; RESP 16–23; TEMP 36.8–37.1; O2SAT 95–98; BMI 27.4
--- NOTE | 2023-04-13 08:01 | ECG_ITS ---
APPROVED REPORT Exam: Resting ECG HR:111 bpm ECG Measurements Heart Rate 111 AXES PA 180 P 29 QRSd 90 QRS -77 QT 330 T 30 QTc 395 Conclusion SINUS TACHYCARDIA LEFT AXIS DEVIATION Late R wave progression Old septal changes ABNORMAL ECG UNCONFIRMED REPORT Electronically signed by : Norris Livingston MD 04/13/2023 20:09:37
--- NOTE | 2023-04-13 08:18 | XR_ITS ---
FINAL REPORT TECHNIQUE: Chest PA & Lateral CLINICAL HISTORY: chest pain COMPARISON: January 2022 FINDINGS: 2 views of the chest were performed. The heart size is normal. The mediastinum is within normal limits. The lungs are underinflated. There are chronic changes at the lung bases. There is no acute infiltrate. There are no pleural effusions. There is no pneumothorax. The bony thorax appears intact. IMPRESSION: No acute cardiopulmonary process. Reviewed, Interpreted and Dictated by Eleazar Prater MD Transcribed by Antonio Martinez Authenticated and [facility]
--- NOTE | 2023-04-13 08:19 | CT_ITS ---
FINAL REPORT TECHNIQUE: Postcontrast axial images through the abdomen and pelvis were performed. This study was performed with techniques to keep radiation doses as low as reasonably achievable, (ALARA). Individualized dose reduction techniques using automated exposure control or adjustment of mA and/or kV according to the patient's size were employed. CLINICAL HISTORY: abd pain FINDINGS: Abdomen: There is scarring in the lung bases. The liver is normal in size and attenuation. The gallbladder is distended. The spleen is unremarkable. The adrenals are normal. The pancreas is unremarkable. The kidneys enhance appropriately. The aorta is normal in caliber. No free fluid or adenopathy is identified. No findings for mechanical bowel obstruction are identified. There is pancolonic diverticulosis. There is no acute inflammation suggesting diverticulitis. Minimal spondylolisthesis of L4 on L5 is probably degenerative. Pelvis: The appendix is not identified. The urinary bladder is unremarkable. No free fluid, free air, abscess or adenopathy is identified. IMPRESSION: Pancolonic diverticulosis without evidence of acute diverticulitis. Reviewed, Interpreted and Dictated by Eleazar Prater MD Transcribed by Antonio Martinez Authenticated and [facility]
--- NOTE | 2023-04-13 08:19 | HMH.EDGENADL ---
Discharge Plan Disposition Patient Disposition: Home, Self-Care Condition: Good Prescriptions Prescriptions: New metoclopramide HCl [Reglan] 10 mg tablet 10 mg PO Q8H 7 Days Qty: 15 0RF No Action atorvastatin 10 mg tablet 10 mg PO DAILY Patient Comments: TAKE 1 TABLET BY MOUTH EVERY DAY FOR 90 DAYS hyoscyamine sulfate 0.125 mg tablet 0.125 mg PO QID PRN (Reason: diarrhea or abdominal cramping) Qty: 60 0RF fluticasone propionate 50 mcg/actuation spray,suspension 1 spray NS DAILY loratadine 10 mg tablet See Rx Instructions .ROUTE .COMPLEX Qty: 90 1RF Dose Instruction: TAKE 1 TABLET BY MOUTH EVERY DAY FOR 30 DAYS Rx Instructions: TAKE 1 TABLET BY MOUTH EVERY DAY FOR 30 DAYS amoxicillin-pot clavulanate 875-125 mg tablet 1 tab PO BID 10 Days Qty: 20 0RF Referrals Follow up/Referrals: Provider,Referral, MD [Referring] - See instructions Activity Restrictions/Add. Instructions Additional Instructions/Restrictions: You were evaluated in the emergency department today. At this time you are appropriate for discharge. You do have COVID. Wash your hands frequently to avoid spread. You declined to be prescribed Paxlovid the anti-COVID medication which is okay, if you change your mind, please return to the ER and we can prescribe it. Drink plenty of water. Continue taking all home medications as previously prescribed. Make an appointment with your primary care physician for reevaluation in 2 to 3 days. Return to the emergency department with any new, worsening, or otherwise concerning symptoms. Clinical Impressions Clinical Impression: COVID Discharge ED Provider: Dorina Argueta Adult HPI General Chief complaint: Chest Pain Stated complaint: chest pain Time Seen by Provider: 04/13/23 08:13 Mode of Arrival: Ambulatory Source of Information: Patient Limitations: No Limitations Description of Symptoms (Recalled from ER Triage Doc. by RN): pt to ed c/o intermittent sunsternal chest pain and persistant nausea that started last night. pt denies cardiac hx. pt denies any episodes of emesis. 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 She does not have history of heart problems. Patient is not having any current chest pain but states she will occasionally have twinges of pain across her left chest recently, these are not associated with any of her other symptoms or dizzy spells. Patient states she is nauseous enough she could not even put her teeth in this morning because it made her gag. She would like to be tested for COVID/flu. Related Data Home Medications Medication Instructions Recorded Confirmed atorvastatin 10 mg tablet 10 mg PO DAILY Cholesterol 12/04/21 09/18/22 fluticasone propionate 50 1 spray intranasal DAILY ALLERGIES 03/30/22 09/18/22 mcg/actuation nasal spray,suspension Previous Rx's Medication Instructions Recorded hyoscyamine sulfate 0.125 mg tablet 0.125 mg PO QID PRN diarrhea or 12/04/21 abdominal cramping #60 tabs amoxicillin 875 mg-potassium 1 tab PO BID 10 days #20 tabs 11/08/22 clavulanate 125 mg tablet loratadine 10 mg tablet See Rx Instructions .Route 01/01/23 .COMPLEX #90 tabs metoclopramide HCl 10 mg tablet 10 mg PO Q8H 7 days #15 tabs 04/13/23 (Reglan) Allergies Allergy/AdvReac Type Severity Reaction Status Date / Time barium iodide [BARIUM IODIDE] Allergy Mild Verified 05/05/22 12:06 [facility] Disclaimer: The information contained in this sect
--- NOTE | 2023-04-13 08:22 | CT_ITS ---
FINAL REPORT TECHNIQUE: Axial CT images were performed through the head. Coronal reformatted images were submitted. This study was performed with techniques to keep radiation doses as low as reasonably achievable (ALARA). Individualized dose reduction techniques using automated exposure control or adjustment of mA and/or kV according to the patient's size were employed. 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 There is no evidence of hemorrhage. There is no mass or edema identified. There is no abnormal extra-axial fluid seen. The sinuses are well aerated. IMPRESSION: No acute intracranial process. Reviewed, Interpreted and Dictated by Eleazar Prater MD Transcribed by Antonio Martinez Authenticated and [facility]
[2023-04-13 08:27] LABS: Basophils # 0.1 K/mm3 (0-0.2); Basophils % 0.5 % (0.1-2.0); Eosinophils # 0.1 K/mm3 (0.0-0.4); Eosinophils % 1.4 % (0.1-12.0); Hematocrit 45.5 % (37.0-47.0); Hemoglobin 15.4 g/dL (12.2-16.2); Lymphocytes # 0.4 K/mm3 (0.7-4.5); MANUAL DIFFERENTIAL MANUAL DIFFERENTIAL (MANUAL DIFF); Mean Corpuscular HGB Conc 33.7 g/dL (31.8-35.4); Mean Corpuscular Hemoglobin 31.1 pg (27.0-31.2); Mean Corpuscular Volume 92.2 fl (81-99); Mean Platelet Volume 7.4 fl (7.4-10.4); Monocytes # 0.6 K/mm3 (0.1-1.0); Monocytes % 7.3 % (1.7-9.3); Neutrophils # 7.2 K/mm3 (1.8-7.8); Neutrophils % 85.8 % (37.0-80.0); Platelet Count 235 K/mm3 (142-424); Red Blood Count 4.94 M/mm3 (4.20-5.40); White Blood Count 8.4 K/mm3 (4.8-10.8)
[2023-04-13 08:37] LABS: Alanine Aminotransferase 21 U/L (12-78); Albumin Level 4.6 g/dl (3.5-5.0); Albumin/Globulin Ratio 1.4 (1.1-1.8); Alkaline Phosphatase 103 U/L (38-126); Aspartate Amino Transferase 35 U/L (14-36); Bilirubin,Total 0.6 mg/dl (0.2-1.3); Blood Urea Nitrogen 15 mg/dl (7-17); Calcium 9.1 mg/dl (8.4-10.2); Carbon Dioxide 24 mmol/L (22.0-30.0); Chloride 103 mmol/L (98-107); Creatinine Clearance Estimated 51 mL/min (50-200); Estimated Glomerular Filt Rate 69 ml/min (>60); GFR (African American) 84 ML/MIN (>60); Globulin 3.2 g/dL (1.3-3.2); Glucose 111 mg/dl (74-100); Sodium 137 mmol/L (136-145); Total Protein,Serum 7.8 g/dl (6.3-8.2)
[2023-04-13 08:38] LABS: Microscopic, Urine URINE MICROSCOPIC (MICROSCOPIC)
[2023-04-13 08:38] LABS: Eosinophils % 2 % (0-3); Lymphocytes % 6 % (10-50); Monocytes % 10 % (2-9); Neutrophils % 82 % (42-76); Platelet Estimate Normal; RBC Morphology Normal; Total Cells Counted 100
[2023-04-13 08:41] LABS: Influenza A, PCR Not Detected (NotDetected); Influenza B, PCR Not Detected (NotDetected)
[2023-04-13 08:46] LABS: Appearance,Urine CLEAR (Clear); Bilirubin,Urine Negative (Negative); Blood, Urine Negative (Negative); Color,Urine YELLOW (Yellow); Glucose,Urine (UA) Negative (Negative); Ketones,Urine TRACE (Negative); Leukocyte Esterase,Urine Negative (Negative); Nitrate,Urine Negative (Negative); Protein,Urine Negative (Negative); Urobilinogen,Urine 0.2 EU/dl (0.2)
--- NOTE | 2023-04-13 08:49 | PC.NURSE ---
To radiology via wheelchair
[2023-04-13 08:50] LABS: Troponin I < 0.01 ng/ml (0.00-0.034)
[2023-04-13 09:13] LABS: Coronavirus 19, PCR Detected (NotDetected)
[2023-04-13 09:42] LABS: Bacteria,Urine Trace /lpf
[2023-04-13 12:29] LABS: Troponin I < 0.01 ng/ml (0.00-0.034)
--- NOTE | 2023-04-13 12:44 | PC.NURSE ---
pt to restroom
== END 2023-04-13 14:11 | disposition home or self-care (01) ==
PROVIDERS: Emergency Provider Emergency Medicine; PCP Family Medicine
DX: U07.1 COVID-19 (principal); R07.9 Chest pain, unspecified; R00.0 Tachycardia, unspecified; R11.0 Nausea; R51.9 Headache, unspecified; R42 Dizziness and giddiness; E78.5 Hyperlipidemia, unspecified
CPT/HCPCS: 36415; 70450; 71046; 74177; 80053; 81001; 84484; 85007; 85025; 87636; 93005; 96374; 96375; 99285; J0131; J2405; Q9967

== ENCOUNTER 2023-07-31 10:18 | Emergency (ER) | payer MEDICARE, SELFPAY ==
[2023-07-31 10:35] VITALS: BP 114/78; PULSE 107; RESP 22; TEMP 36.8; O2SAT 98; BMI 26.7
[2023-07-31 11:13] LABS: UTC Influenza A Antigen Negative (Negative)
[2023-07-31 11:14] LABS: UTC Influenza B Antigen Negative (Negative)
--- NOTE | 2023-07-31 11:17 | ED_ITS ---
Discharge Plan Disposition Patient Disposition: Home, Self-Care Condition: Good Prescriptions Prescriptions: No Action atorvastatin 10 mg tablet 10 mg PO DAILY Patient Comments: TAKE 1 TABLET BY MOUTH EVERY DAY FOR 90 DAYS losartan 50 mg tablet 50 mg PO DAILY Patient Comments: TAKE 1 TABLET BY MOUTH EVERY DAY FOR 30 DAYS omeprazole-sodium bicarbonate [Zegerid OTC] 20-1.1 mg-gram Capsule 1 cap PO DAILY loratadine 10 mg tablet 10 mg PO DAILY Rx Instructions: TAKE 1 TABLET BY MOUTH EVERY DAY FOR 30 DAYS Referrals Follow up/Referrals: Fernando Matson MD [Primary Care Provider] - See instructions Activity Restrictions/Add. Instructions Additional Instructions/Restrictions: No sign of a bacterial infection. Likely viral. Viruses can take 7-14 days to run their course. Nasal saline and bulb syringe or nose Karen to remove nasal drainage to help with nasal congestion. Hard to eat, drink, sleep with nasal congestion so important to keep this cleaned out. Monitor temp. Tylenol or Motrin as needed for pain or fever Encourage fluids, water, Gatorade, Powerade, Pedialyte if /toddler/child Warm salt water gargles Warm fluids Sore throat lozenges Sleep elevated Humidifier/vaporizer Follow-up immediately for new or worsening symptoms or no noticeable improvement over the next 48-72 hours. Clinical Impressions Clinical Impression: Upper respiratory disease Instructions Patient Instructions: DI for Viral Upper Respiratory Infection -- Adult Discharge ED Provider: Jennifer ([facility])Amanda [facility] [place] HPI General Stated complaint: sob, cough,headache Mode of Arrival: Ambulatory Source of Information: Patient Limitations: No Limitations Time Seen by Provider: 07/31/23 11:18 Description of Symptoms (Recalled from Triage Doc. by RN): PATIENT STATES SHE STARTED A BLOOD PRESSURE MEDICATION 10 DAYS AGO AND HAS HAD A HEADACHE ON AND OFF SINCE. SHE ALSO REPORTS COUGH, NAUSEA, AND NASAL CONGESTION THAT STARTED THIS MORNING HEENT Symptoms (Recalled from RN notes): Yes Resp Symptoms (Recalled from RN notes): Yes Skin Symptoms (Recalled from RN notes): No MS Symptoms (Recalled from RN notes): No Functional Status (Recalled from RN notes): WNL History of Present Illness Provider Complaint: 78 YR OLD FEMALE PRESENTS FOR COUGH, NAUSEA, AND NASAL CONGESTION THAT STARTED THIS MORNING. PATIENT STATES SHE STARTED A BLOOD PRES SURE MEDICATION 10 DAYS AGO AND HAS HAD A HEADACHE ON AND OFF SINCE. TAKING CEFTINER Related Data Home Medications Medication Instructions Recorded Confirmed atorvastatin 10 mg tablet 10 mg PO DAILY Cholesterol 12/04/21 07/31/23 loratadine 10 mg tablet 10 mg PO DAILY 07/31/23 07/31/23 losartan 50 mg tablet 50 mg PO DAILY 07/31/23 07/31/23 omeprazole 20 mg-sodium 1 cap PO DAILY 07/31/23 07/31/23 bicarbonate 1.1 gram capsule (Zegerid OTC) Allergies Allergy/AdvReac Type Severity Reaction Status Date / Time barium iodide [BARIUM IODIDE] Allergy Mild Verified 07/14/23 10:40 Worker's Comp Is this a Worker's Comp case?: No [facility] Disclaimer: The information contained in this section may have been updated after the patient was seen, as this information can be updated by other users. Medical History , [employer]) Degenerative disc disease HLD (hyperlipidemia) Family History , [employer]) Coronary artery disease Heart attack Cancer Hypertension Stroke Social History , [employer]) Smoking Status: Never smoker alcohol intake: never substance use type: denies use current occupational status: retired Travel in the last 8 weeks: None ROS Obtained: Yes All systems reviewed & no additional complaints except as documented Constitutional Constitutional: Reports system reviewed and no additional complaints, except as documented, Reports as per HPI and Reports headache(s) Eyes Eyes: Reports system reviewed and no additional complaints, except as documented ENT Ears, Nose, Mouth, and Throat: Reports system reviewed and no additional complaints, except as documented, Reports as per HPI, Reports headache(s), Repor ts nasal congestion, Reports nasal discharge and Reports sore throat Cardiovascular Cardiovascular: Reports system reviewed and no additional complaints, except as documented Respiratory Respiratory: Reports system reviewed and no additional complaints, except as documented, Reports as per HPI and Reports cough Gastrointestinal Gastrointestingal: Reports system reviewed and no additional complaints, except as documented Genitourinary Female Genitourinary: Reports system reviewed and no additional complaints, except as documented Integumentary/Breasts Skin/Breast: Reports system reviewed and no additional complaints, except as documented Neurologic Neurologic: Reports system reviewed and no additional complaints, except as documented and Reports headache(s) Endocrine Endocrine: Reports system reviewed and no additional complaints, except as docum ented Physical Exam General General appearance: alert and in no apparent distress Head Head exam: atraumatic and normocephalic Eye Eye exam: Present normal appearance and PERRL ENT ENT exam: Present mucous membranes moist and TM's normal bilaterally Expanded ENT Exam Mouth exam: Present other (POST NASAL DRAINAGE) Respiratory Respiratory exam: Present normal lung sounds bilaterally Cardiovascular Cardiovascular exam: Present regular rate and normal rhythm Neurological Exam Neurological exam: Present alert and oriented X3 Skin Skin exam: Present warm and intact Medical Decision Making Medical Records Medical records reviewed: Yes I reviewed the patient's medical records. John Paul Inquiry Pt receiving controlled substance: No John Paul was queried for this patient: No Vital Signs: 07/31/23 10:35 Temperature 98.3 F Temperature Source Oral Pulse Rate [Left Brachial] 107 H Respiratory Rate 22 Blood Pressure [Left Arm] 114/78 Blood Pressure Mean [Left Arm] 90 Blood Pressure Source [Left Arm] Automatic Cuff Blood Pressure Position [Left Arm] Sitting 02 Sat by Pulse Oximetry 98 Oxygen Delivery Method Room Air Lab Data Lab results reviewed: Yes I reviewed the patient's lab results. Lab Results 07/31/23 11:13: Influenza Type A Ag Negative, Influenza Type B Ag Negative
[2023-07-31 11:23] VITALS: BP 114/78; PULSE 107; RESP 22; TEMP 36.8; O2SAT 98
[2023-07-31 11:35] LABS: Adenovirus,PCR Not Detected (NotDetected); Coronavirus 19, PCR Not Detected (NotDetected); Coronavirus 229E Not Detected (NotDetected); Coronavirus NL63 Not Detected (NotDetected); Coronavirus OC43 Not Detected (NotDetected); Coronovirus HKU1,PCR Not Detected (NotDetected); Human Metapneumovirus Not Detected (NotDetected); Influenza A, PCR Not Detected (NotDetected); Influenza AH1, 2009 Not Detected (NotDetected); Influenza AH1, PCR Not Detected (NotDetected); Influenza B, PCR Not Detected (NotDetected); Parainfluenza 1, PCR Not Detected (NotDetected); Parainfluenza 2, PCR Not Detected (NotDetected); Parainfluenza 3, PCR Not Detected (NotDetected); Parainfluenza 4, PCR Not Detected (NotDetected); Respiratory Syncytial Virus Not Detected (NotDetected); Rhinovirus/Enterovirus Not Detected (NotDetected)
[2023-07-31 15:29] LABS: Influenza AH3,PCR Detected (NotDetected)
== END 2023-07-31 11:36 | disposition home or self-care (01) ==
PROVIDERS: Emergency Provider Nurse Practitioner Family; PCP Family Medicine
DX: J10.1 Influenza due to other identified influenza virus with other respiratory manifestations (principal); R05.9 Cough, unspecified; R11.0 Nausea; R09.81 Nasal congestion; R51.9 Headache, unspecified; E78.5 Hyperlipidemia, unspecified; I10 Essential (primary) hypertension
CPT/HCPCS: 87632; 87635; 87804; 99212; 99214; G0463

== ENCOUNTER → 2023-08-25 13:49 | Outpatient (CLI) | payer MEDICARE, SELFPAY | PROVIDERS: PCP Specialist; Visit Provider Specialist | DX: G47.33 Obstructive sleep apnea (adult) (pediatric) (principal) | CPT/HCPCS: G0399 ==

== ENCOUNTER 2023-09-29 17:58 | Emergency (ER) | payer MEDICARE, SELFPAY ==
[2023-09-29 17:58] VITALS: BP 154/77; PULSE 70; RESP 16; TEMP 36.6; O2SAT 98; BMI 26.4
--- NOTE | 2023-09-29 18:11 | HMH.EDGENADL ---
Discharge Plan Disposition Patient Disposition: Home, Self-Care Condition: Good Prescriptions Prescriptions: New meclizine 25 mg tablet 25 mg PO QID PRN (Reason: dizziness) Qty: 30 0RF No Action atorvastatin 10 mg tablet 10 mg PO DAILY Patient Comments: TAKE 1 TABLET BY MOUTH EVERY DAY FOR 90 DAYS hydrochlorothiazide 25 mg tablet 25 mg PO DAILY fluticasone propionate 50 mcg/actuation spray,suspension 1 spray intranasal DAILY Patient Comments: SPRAY 1 SPRAY INTO EACH NOSTRIL EVERY DAY omeprazole-sodium bicarbonate [Zegerid OTC] 20-1.1 mg-gram Capsule 1 cap PO DAILY loratadine 10 mg tablet 10 mg PO DAILY Rx Instructions: TAKE 1 TABLET BY MOUTH EVERY DAY FOR 30 DAYS Referrals Follow up/Referrals: Fernando Matson MD [Primary Care Provider] - See instructions Activity Restrictions/Add. Instructions Additional Instructions/Restrictions: Please follow-up closely with your primary care physician as needed for continued symptoms or any change. May return to ER as needed for any worsening signs or symptoms. Clinical Impressions Clinical Impression: Dizziness Discharge ED Provider: Ronal Macias General Adult HPI <CHANELLE Cruz - Last Filed: 09/29/23 19:51> General Chief complaint: Dizziness Stated complaint: nauseous, dizzy Time Seen by Provider: 09/29/23 18:09 History of Present Illness HPI narrative: Patient presents for evaluation of dizziness and blurred vision. Patient reports 2 events of dizziness and blurred vision 1 occurred earlier this morning and the second occurred prior to arrival to the emergency department. The second 1 lasted approximately 45 minutes. Patient reports that these are unprovoked events however she did check her blood pressure and her blood pressure was normal with a heart rate in the 70s. She is never experienced anything like this before. Currently patient is symptom-free without chest pain shortness of breath fever chills hemoptysis hematochezia melena nausea vomit diarrhea. Related Data Home Medications Medication Instructions Recorded Confirmed atorvastatin 10 mg tablet 10 mg PO DAILY Cholesterol 12/04/21 09/07/23 loratadine 10 mg tablet 10 mg PO DAILY 07/31/23 09/07/23 omeprazole 20 mg-sodium 1 cap PO DAILY 07/31/23 09/07/23 bicarbonate 1.1 gram capsule (Zegerid OTC) fluticasone propionate 50 1 spray intranasal DAILY 09/07/23 09/07/23 mcg/actuation nasal spray,suspension hydrochlorothiazide 25 mg tablet 25 mg PO DAILY 09/07/23 09/07/23 Previous Rx's Medication Instructions Recorded meclizine 25 mg tablet 25 mg PO QID PRN dizziness #30 tabs 09/29/23 Allergies Allergy/AdvReac Type Severity Reaction Status Date / Time barium iodide [BARIUM IODIDE] Allergy Mild Verified 07/14/23 10:40 PFS <CHANELLE Cruz - Last Filed: 09/29/23 19:51> [facility] Disclaimer: The information contained in this section may have been updated after the patient was seen, as this information can be updated by other users. Medical History (Updated 09/29/23 @ 19:50 by CHANELLE Cruz) Hypertension HLD (hyperlipidemia) Degenerative disc disease Family History Other Cancer Coronary artery disease Heart attack Hypertension Stroke Social History Smoking Status: Never smoker alcohol intake: never substance use type: denies use current occupational status: retired Travel in the last 8 weeks: None <CHANELLE Cruz - Last Filed: 09/29/23 19:51> ROS Obtained: Yes Systems reviewed as appropriate & no additional complaints except as documented Physical Exam <CHANELLE Cruz - Last Filed: 09/29/23 19:51> General General appearance: alert and in no apparent distress Head Head exam: atraumatic and normal inspection Eye Eye exam: Present normal appearance, PERRL and EOMI; Absent nystagmus ENT ENT exam: Present normal exam, normal oropharynx, mucous membranes moist, TM's normal bilaterally and normal external ear exam Neck Neck exam: Present normal inspection, full ROM and trachea midline; Absent tenderness, meningismus or lymphadenopathy Chest Chest inspection: Present normal inspection and symmetric chest wall rise Respiratory Respiratory exam: Present normal lung sounds bilaterally; Absent respiratory distress or wheezes Cardiovascular Cardiovascular exam: Present regular rate, normal rhythm, normal heart sounds, +S1 and +S2 Abdominal Exam Abdominal exam: Present soft; Absent tenderness Extremities Exam Extremities exam: Present normal inspection and full ROM Back Exam Back exam: Present normal inspection and full ROM; Absent tenderness Neurological Exam Neurological exam: Present alert, oriented X3, CN II-XII intact and normal gait Psychiatric Psychiatric exam: Present normal affect and normal mood Skin Skin exam: Present warm, dry and normal color Medical Decision Making <CHANELLE Cruz - Last Filed: 09/29/23 19:51> Medical Records Medical records reviewed: Yes I reviewed the patient's medical records. [place] Inquiry Pt receiving controlled substance: No Vital Signs: 09/29/23 17:58 09/29/23 20:01 Temperature 97.8 F Temperature Source Oral Pulse Rate [Orthostatic Lying] 60 Pulse Rate [Orthostatic Sitting] 66 Pulse Rate [Orthostatic Standing] 67 Pulse Rate [Right] 70 Respiratory Rate 16 Blood Pressure [Orthostatic Lying] 127/73 Blood Pressure [Orthostatic Sitting] 131/70 Blood Pressure [Orthostatic Standing] 130/69 Blood Pressure [Right Arm] 154/77 H Blood Pressure Mean [Right Arm] 102 Blood Pressure Source [Right Arm] Automatic Cuff 02 Sat by Pulse Oximetry 98 Oxygen Delivery Method Room Air Lab Data Lab results reviewed: Yes I reviewed the patient's lab results. Lab Results 09/29/23 18:43: WBC 8.6, RBC 4.97, Hgb 15.2, Hct 46.4, MCV 93.3, MCH 30.5, MCHC 32.7, RDW 14.5, Plt Count 267, MPV 7.8, Neut % (Auto) 67.5, Lymph % (Auto) 21.9, [place] % (Auto) 6.1, Eos % (Auto) 2.1, Baso % (Auto) 2.4 H, Neut # (Auto) 5.8, Lymph # (Auto) 1.9, [place] # (Auto) 0.5, Eos # (Auto) 0.2, Baso # (Auto) 0.2, PT 10.1, INR 0.93, Sodium 136, Potassium 3.4 L, Chloride 101, Carbon Dioxide 31 H, Anion Gap 7.4, BUN 22 H, Creatinine 0.80, Estimated Creat Clear 50, Estimated GFR 69, Est GFR ( Amer) 84, Glucose 89, Calcium 9.8, Magnesium 1.9, Total Bilirubin 0.5, AST 28, ALT 22, Alkaline Phosphatase 101, Troponin I < 0.01, Total Protein 7.2, Albumin 4.2, Globulin 3.0, Albumin/Globulin Ratio 1.4, TSH 1.42 09/29/23 18:44: Urine Color Yellow, Urine Appearance Clear, Urine pH 6.5, Ur Specific [place] 1.015, Urine Protein Negative, Urine Glucose (UA) Negative, Urine Ketones Negative, Urine Blood Negative, Urine Nitrate Negative, Urine Bilirubin Negative, Urine Urobilinogen 0.2, Ur Leukocyte Esterase Trace, Urine RBC None, Urine WBC Occasional, Ur Squamous Epith Cells Occasional, Urine Bacteria Trace 09/29/23 18:43 09/29/23 18:43 Orders (Tests/Meds): ED MEDICATIONS Discontinued Medications Generic Name Dose Route Start Last Admin Trade Name Freq PRN Reason Stop Dose Admin Meclizine HCl 25 mg 09/29/23 18:20 09/29/23 18:38 Meclizine 25mg Tablet PO 09/29/23 18:21 25 mg ONCE ONE Administration ORDERS Category Date Time Status CT head/brain wo con Stat Cat Scan 09/29/23 18:20 Completed CBC w/Auto Diff [Complete Blood Count Auto Diff] Stat Lab 09/29/23 18:43 Completed CMP [Comprehensive Metabolic Panel] Stat Lab 09/29/23 18:43 Completed INR [Prothrombin Time INR] Stat Lab 09/29/23 18:43 Completed Magnesium Stat Lab 09/29/23 18:43 Completed TSH [Thyroid Stimulating Hormone] Stat Lab 09/29/23 18:43 Completed Trop I [Troponin I] Stat Lab 09/29/23 18:43 Completed Troponin I Q3H Lab 09/29/23 21:30 Ordered Troponin I Q3H Lab 09/30/23 00:30 Ordered UA [Urinalysis and Microscopic] Stat Lab 09/29/23 18:44 Completed Medical Decision Narrative: In summary patient is a 78-year-old female who presents to the emergency department for evaluation of dizziness and blurred vision. Patient is hemodynamically stable upon arrival, afebrile currently. Physical exam is unremarkable and nonfocal. Patient reportedly is on Omnicef for a right otitis media however both tympanic membranes are normal with no evidence of fluid behind them. No carotid bruits on exam. No tenderness at the occiput no meningeal signs. Differential diagnosis includes TIA versus vestibular disorder versus arrhythmia versus syncope. Initial workup will be conducted with hematologic labs twelve-lead EKG CT scan of the head contrast. Initial interventions include Toradol Tylenol antiemetics and meclizine. Initial workup reviewed by me shows that her hematologic labs are nonactionable and my informal interpretation of her imaging shows no acute processes and her urine is bland. Her NIH stroke score 0. Upon repeat evaluation patient has had no further dizziness or blurred vision while here.. Given this plan for discharge with close follow-up with PCP and return to the emergency department for any worsening signs or symptoms. Patient verbalized understanding. I will send a prescription for meclizine to see if that is beneficial to her. EKG independently interpreted, sinus rhythm 61 beats a minute no ST or T wave changes concerning for acute ischemia. WA, QRS, QT intervals within normal limits. Patient does have incomplete right bundle branch block. <Ronal Macias MD - Last Filed: 09/29/23 20:31> Vital Signs: 09/29/23 17:58 09/29/23 20:01 Temperature 97.8 F Temperature Source Oral Pulse Rate [Orthostatic Lying] 60 Pulse Rate [Orthostatic Sitting] 66 Pulse Rate [Orthostatic Standing] 67 Pulse Rate [Right] 70 Respiratory Rate 16 Blood Pressure [Orthostatic Lying] 127/73 Blood Pressure [Orthostatic Sitting] 131/70 Blood Pressure [Orthostatic Standing] 130/69 Blood Pressure [Right Arm] 154/77 H Blood Pressure Mean [Right Arm] 102 Blood Pressure Source [Right Arm] Automatic Cuff 02 Sat by Pulse Oximetry 98 Oxygen Delivery Method Room Air Lab Data Lab Results 09/29/23 18:43: WBC 8.6, RBC 4.97, Hgb 15.2, Hct 46.4, MCV 93.3, MCH 30.5, MCHC 32.7, RDW 14.5, Plt Count 267, MPV 7.8, Neut % (Auto) 67.5, Lymph % (Auto) 21.9, [place] % (Auto) 6.1, Eos % (Auto) 2.1, Baso % (Auto) 2.4 H, Neut # (Auto) 5.8, Lymph # (Auto) 1.9, [place] # (Auto) 0.5, Eos # (Auto) 0.2, Baso # (Auto) 0.2, PT 10.1, INR 0.93, Sodium 136, Potassium 3.4 L, Chloride 101, Carbon Dioxide 31 H, Anion Gap 7.4, BUN 22 H, Creatinine 0.80, Estimated Creat Clear 50, Estimated GFR 69, Est GFR ( Amer) 84, Glucose 89, Calcium 9.8, Magnesium 1.9, Total Bilirubin 0.5, AST 28, ALT 22, Alkaline Phosphatase 101, Troponin I < 0.01, Total Protein 7.2, Albumin 4.2, Globulin 3.0, Albumin/Globulin Ratio 1.4, TSH 1.42 09/29/23 18:44: Urine Color Yellow, Urine Appearance Clear, Urine pH 6.5, Ur Specific [place] 1.015, Urine Protein Negative, Urine Glucose (UA) Negative, Urine Ketones Negative, Urine Blood Negative, Urine Nitrate Negative, Urine Bilirubin Negative, Urine Urobilinogen 0.2, Ur Leukocyte Esterase Trace, Urine RBC None, Urine WBC Occasional, Ur Squamous Epith Cells Occasional, Urine Bacteria Trace Orders (Tests/Meds): ED MEDICATIONS Discontinued Medications Generic Name Dose Route Start Last Admin Trade Name Freq PRN Reason Stop Dose Admin Meclizine HCl 25 mg 09/29/23 18:20 09/29/23 18:38 Meclizine 25mg Tablet PO 09/29/23 18:21 25 mg ONCE ONE Administration ORDERS Category Date Time Status CT head/brain wo con Stat Cat Scan 09/29/23 18:20 Completed CBC w/Auto Diff [Complete Blood Count Auto Diff] Stat Lab 09/29/23 18:43 Completed CMP [Comprehensive Metabolic Panel] Stat Lab 09/29/23 18:43 Completed INR [Prothrombin Time INR] Stat Lab 09/29/23 18:43 Completed Magnesium Stat Lab 09/29/23 18:43 Completed TSH [Thyroid Stimulating Hormone] Stat Lab 09/29/23 18:43 Completed Trop I [Troponin I] Stat Lab 09/29/23 18:43 Completed Troponin I Q3H Lab 09/29/23 21:30 Ordered Troponin I Q3H Lab 09/30/23 00:30 Ordered UA [Urinalysis and Microscopic] Stat Lab 09/29/23 18:44 Completed Medical Decision Narrative: In summary patient is a 78-year-old female who presents to the emergency department for evaluation of dizziness and blurred vision. Patient is hemodynamically stable upon arrival, afebrile currently. Physical exam is unremarkable and nonfocal. Patient reportedly is on Omnicef for a right otitis media however both tympanic membranes are normal with no evidence of fluid behind them. No carotid bruits on exam. No tenderness at the occiput no meningeal signs. Differential diagnosis includes TIA versus vestibular disorder versus arrhythmia versus syncope. Initial workup will be conducted with hematologic labs twelve-lead EKG CT scan of the head contrast. Initial interventions include Toradol Tylenol antiemetics and meclizine. Initial workup reviewed by me shows that her hematologic labs are nonactionable and my informal interpretation of her imaging shows no acute processes and her urine is bland. Her NIH stroke score 0. Upon repeat evaluation patient has had no further dizziness or blurred vision while here. Orthostatic vital signs within normal limits. Given this plan for discharge with close follow-up with PCP and return to the emergency department for any worsening signs or symptoms. Patient verbalized understanding. I will send a prescription for meclizine to see if that is beneficial to her. EKG independently interpreted, sinus rhythm 61 beats a minute no ST or T wave changes concerning for acute ischemia. WA, QRS, QT intervals within normal limits. Patient does have incomplete right bundle branch block. Because patient at baseline without signs or symptoms of clinical decompensation, deemed appropriate for discharge. Results were relayed to patient who voiced understanding and were agreeable to outpatient management and follow up. I discussed my clinical impression with patient and answered all questions. At this time, the evidence for any other entities in the differential is insufficient to warrant any further testing or ED observation. This was explained as well. Advisory was given that persistent or worsening symptoms require further evaluation. I confirmed the understanding of this discussion. I was consulted by the [facility], and we discussed the complexity of the problems being addressed. I approved the treatment and management plan for this patient?s care in the Emergency Department, thus performing a substantive portion of the medical decision making. Ronal Macias MD Critical Care <CHANELLE Cruz - Last Filed: 09/29/23 19:51> Critical Care Time Critical Care Time: No
--- NOTE | 2023-09-29 18:20 | CT_ITS ---
PROCEDURE INFORMATION: Exam: CT Head Without Contrast Exam date and time: 09/29/2023 6:31 PM Age: 78 years old Clinical indication: Dizziness TECHNIQUE: Imaging protocol: Computed tomography of the head without contrast. Radiation optimization: All CT scans at this facility use at least one of these dose optimization techniques: automated exposure control; mA and/or kV adjustment per patient size (includes targeted exams where dose is matched to clinical indication); or iterative reconstruction. COMPARISON: CT HEAD/BRAIN WO CON 04/13/2023 8:54 AM FINDINGS: Brain: Age-related involutional changes and chronic microvascular ischemic disease. No evidence for acute transcortical infarct. No mass effect or midline shift. No extra-axial collection. No acute intracranial hemorrhage. Basal cisterns are patent. Cerebral ventricles: No ventriculomegaly. Paranasal sinuses: Visualized sinuses are unremarkable. No fluid levels. Mastoid air cells: Visualized mastoid air cells are well aerated. Bones: Unremarkable. No acute fracture. Soft tissues: Unremarkable. IMPRESSION: No evidence for acute transcortical infarct, acute intracranial hemorrhage, or mass effect.
--- NOTE | 2023-09-29 18:27 | PC.NURSE ---
PT TO CT
[2023-09-29] MEDS: MECLIZINE 25MG TABLET 25 MG PO (18:38)
[2023-09-29 18:54] LABS: Microscopic, Urine URINE MICROSCOPIC (MICROSCOPIC)
[2023-09-29 18:58] LABS: Basophils # 0.2 K/mm3 (0-0.2); Basophils % 2.4 % (0.1-2.0); Eosinophils # 0.2 K/mm3 (0.0-0.4); Eosinophils % 2.1 % (0.1-12.0); Hematocrit 46.4 % (37.0-47.0); Hemoglobin 15.2 g/dL (12.2-16.2); Lymphocytes # 1.9 K/mm3 (0.7-4.5); Lymphocytes % 21.9 % (10-50); Mean Corpuscular HGB Conc 32.7 g/dL (31.8-35.4); Mean Corpuscular Hemoglobin 30.5 pg (27.0-31.2); Mean Corpuscular Volume 93.3 fl (81-99); Mean Platelet Volume 7.8 fl (7.4-10.4); Monocytes # 0.5 K/mm3 (0.1-1.0); Monocytes % 6.1 % (1.7-9.3); Neutrophils # 5.8 K/mm3 (1.8-7.8); Neutrophils % 67.5 % (37.0-80.0); Platelet Count 267 K/mm3 (142-424); Red Blood Count 4.97 M/mm3 (4.20-5.40); Red Cell Distribution Width 14.5 % (11.5-17.5); White Blood Count 8.6 K/mm3 (4.8-10.8)
[2023-09-29 19:10] LABS: Chloride 101 mmol/L (98-107); Sodium 136 mmol/L (136-145)
[2023-09-29 19:11] LABS: Potassium 3.4 mmoL/L (3.5-5.1)
[2023-09-29 19:12] LABS: Appearance,Urine CLEAR (Clear); Bilirubin,Urine Negative (Negative); Blood, Urine Negative (Negative); Color,Urine YELLOW (Yellow); Glucose,Urine (UA) Negative (Negative); Ketones,Urine Negative (Negative); Leukocyte Esterase,Urine TRACE (Negative); Nitrate,Urine Negative (Negative); PH,Urine 6.5 (5.0-8.5); Protein,Urine Negative (Negative); Specific Gravity, Urine 1.015 (1.005-1.030); Urobilinogen,Urine 0.2 EU/dl (0.2)
[2023-09-29 19:13] LABS: Alanine Aminotransferase 22 U/L (12-78); Albumin Level 4.2 g/dl (3.5-5.0); Albumin/Globulin Ratio 1.4 (1.1-1.8); Alkaline Phosphatase 101 U/L (38-126); Anion Gap 7.4 mEq/L (5-15); Aspartate Amino Transferase 28 U/L (14-36); Bilirubin,Total 0.5 mg/dl (0.2-1.3); Blood Urea Nitrogen 22 mg/dl (7-17); Calcium 9.8 mg/dl (8.4-10.2); Carbon Dioxide 31 mmol/L (22.0-30.0); Creatinine Clearance Estimated 50 mL/min (50-200); Estimated Glomerular Filt Rate 69 ml/min (>60); GFR (African American) 84 ML/MIN (>60); Glucose 89 mg/dl (74-100); Total Protein,Serum 7.2 g/dl (6.3-8.2)
[2023-09-29 19:14] LABS: Magnesium 1.9 mg/dl (1.6-2.3)
[2023-09-29 19:15] LABS: INR 0.93 (0.9-1.1); Prothrombin Time 10.1 seconds (10.1-12.5)
[2023-09-29 19:29] LABS: Bacteria,Urine Trace /lpf; Squamous Epithelial Cell,Urine Occasional #/hpf (0-5); WBC,Urine Occasional #/hpf (0-3)
[2023-09-29 19:31] LABS: Troponin I < 0.01 ng/ml (0.00-0.034)
--- NOTE | 2023-09-29 19:38 | ECG_ITS ---
APPROVED REPORT Exam: Resting ECG HR:61 bpm ECG Measurements Heart Rate 61 AXES MT 183 P 72 QRSd 110 QRS -55 QT 431 T 48 QTc 433 Conclusion SINUS RHYTHM LEFT AXIS DEVIATION INCOMPLETE RIGHT BUNDLE BRANCH BLOCK POSSIBLE ANTERIOR MYOCARDIAL INFARCTION , PROBABLY OLD [30 ms Q WAVE IN V3/V4, OR R < 0.2 mV IN V4] Electronically signed by : MAYRA DYE, 09/30/2023 14:58:47
[2023-09-29 19:45] LABS: Thyroid Stimulating Hormone 1.42 uIU/mL (0.465-4.68)
[2023-09-29 20:01] VITALS: BP 127/73; BP 130/69; BP 131/70; PULSE 60; PULSE 66; PULSE 67
[2023-09-29 20:34] VITALS: BP 107/61; PULSE 80; RESP 18; TEMP 37.1; O2SAT 97
== END 2023-09-29 20:35 | disposition home or self-care (01) ==
PROVIDERS: Physician Assistant; Emergency Provider Emergency Medicine; PCP Family Medicine
DX: R42 Dizziness and giddiness (principal); R11.0 Nausea; I10 Essential (primary) hypertension; E78.5 Hyperlipidemia, unspecified
CPT/HCPCS: 70450; 80053; 81001; 83735; 84443; 84484; 85025; 85610; 93005; 99284

== ENCOUNTER 2023-11-06 19:33 | Emergency (ER) | payer MEDICARE, SELFPAY ==
[2023-11-06 19:36] VITALS: BP 158/84; PULSE 95; RESP 20; TEMP 36.4; O2SAT 99; BMI 25.9
[2023-11-06 19:42] VITALS: BP 158/84; PULSE 82; RESP 18; O2SAT 99
[2023-11-06 20:00] VITALS: BP 149/81; PULSE 89; RESP 20; O2SAT 98
--- NOTE | 2023-11-06 20:13 | XR_ITS ---
PROCEDURE INFORMATION: Exam: XR Left Hip Exam date and time: 11/06/2023 8:25 PM Age: 78 years old Clinical indication: Injury or trauma; Fall; Blunt trauma (contusions or hematomas); Left; Hip; Additional info: Fall, L hip and knee pain TECHNIQUE: Imaging protocol: Radiologic exam of the left hip. Views: 2 or 3 views hip with pelvis when performed. COMPARISON: CT ABDOMEN PELVIS W CON 04/13/2023 9:00 AM FINDINGS: Bones/joints: Osteopenia. No fracture or malalignment. Minor osteoarthritic changes at the SI joints and pubic symphysis without diastasis. Moderate lower lumbar osteoarthritic facet hypertrophy. Soft tissues: No gross soft tissue abnormalities. IMPRESSION: No acute findings.
--- NOTE | 2023-11-06 20:13 | CT_ITS ---
PROCEDURE INFORMATION: Exam: CT Head Without Contrast Exam date and time: 11/06/2023 8:22 PM Age: 78 years old Clinical indication: Injury or trauma; Fall; Blunt trauma (contusions or hematomas); Additional info: Fall struck L face TECHNIQUE: Imaging protocol: Computed tomography of the head without contrast. Radiation optimization: All CT scans at this facility use at least one of these dose optimization techniques: automated exposure control; mA and/or kV adjustment per patient size (includes targeted exams where dose is matched to clinical indication); or iterative reconstruction. COMPARISON: CT HEAD/BRAIN WO CON 09/29/2023 6:31 PM FINDINGS: Brain: No intracranial hemorrhage. Generalized atrophic changes of the ventricles and subarachnoid spaces. Chronic small-vessel ischemic changes noted. No mass, mass effect or midline shift. Intracranial atherosclerotic changes are noted. Cerebral ventricles: See Brain finding. Paranasal sinuses: Left sided maxillary sinus fractures with associated maxillary sinus hemorrhage and adjacent soft tissue air as noted in the CT maxillofacial report redemonstrated. Mastoid air cells: Visualized mastoid air cells are well aerated. Bones: Unremarkable. No acute fracture. Soft tissues: Unremarkable. IMPRESSION: 1. Left maxillary sinus fractures redemonstrated. 2. Otherwise stable noncontrast CT brain with chronic changes. No acute intracranial abnormality.
--- NOTE | 2023-11-06 20:13 | CT_ITS ---
PROCEDURE INFORMATION: Exam: CT Chest Without Contrast; Diagnostic Exam date and time: 11/06/2023 8:28 PM Age: 78 years old Clinical indication: Injury or trauma; Fall; Blunt trauma (contusions or hematomas); Additional info: Fall, severe L chest wall pain anterioly TECHNIQUE: Imaging protocol: Diagnostic computed tomography of the chest without contrast. Radiation optimization: All CT scans at this facility use at least one of these dose optimization techniques: automated exposure control; mA and/or kV adjustment per patient size (includes targeted exams where dose is matched to clinical indication); or iterative reconstruction. COMPARISON: CR XR CHEST 2V 04/13/2023 9:00 AM FINDINGS: Thyroid: The visualized thyroid gland is unremarkable. Lungs: No acute tracheobronchial abnormalities. No pulmonary infiltrates or edema pattern. Mild atelectasis in the lung bases. No pulmonary mass lesions are identified. Mild pleuroparenchymal scarring in the pulmonary apices bilaterally. Pleural spaces: No pleural effusions. No pneumothorax. Heart: Heart size normal. Moderate coronary artery calcification. Esophagus: The esophagus is largely contracted without gross abnormality. Lymph nodes: No supraclavicular or axillary adenopathy. No mediastinal or hilar adenopathy. Vasculature: Mild aortic ectasia/tortuosity and calcific atherosclerosis. Mild aortic valve calcification. No mediastinal hematoma. The pulmonary arteries demonstrate no gross abnormality. Pancreas: Mild-moderate pancreatic atrophy. Stomach: Surgical tacks near the GE junction. Intestine: Moderate colonic diverticulosis without diverticulitis. Bones/joints: No acute osseous abnormalities are identified. Osteopenia and mild thoracic spondylosis. Moderate-severe disc degenerative changes C5-C6. Surgical anchor screw in the right humeral greater tuberosity. Soft tissues: Soft tissues of the thoracic wall demonstrate no acute abnormality. IMPRESSION: 1. No acute thoracic process is identified. 2. Nonemergent findings detailed above.
--- NOTE | 2023-11-06 20:13 | XR_ITS ---
PROCEDURE INFORMATION: Exam: XR Left Knee Exam date and time: 11/06/2023 8:27 PM Age: 78 years old Clinical indication: Injury or trauma; Fall; Blunt trauma; Knee; Left; Additional info: Fall, L hip and knee pain TECHNIQUE: Imaging protocol: Radiologic exam of the left knee. Views: 3 views. COMPARISON: CR XR KNEE LT 2V 03/06/2022 5:53 PM FINDINGS: Bones/joints: Osteopenia. No evidence of acute fracture or malalignment. Left knee arthroplasty without gross hardware complication. No joint effusion. Soft tissues: No gross soft tissue abnormalities. IMPRESSION: No acute findings.
--- NOTE | 2023-11-06 20:13 | XR_ITS ---
PROCEDURE INFORMATION: Exam: XR Left Elbow Exam date and time: 11/06/2023 8:24 PM Age: 78 years old Clinical indication: Injury or trauma; Fall; Blunt trauma (contusions or hematomas); Elbow; Left; Additional info: Fall, L proimal humerus through forearm pain TECHNIQUE: Imaging protocol: Radiologic exam of the left elbow. Views: 3 or more views. COMPARISON: CR XR FOREARM LT 2V 11/06/2023 8:24 PM FINDINGS: Bones/joints: Osteopenia. Minor osteoarthritic spurring at the olecranon and lateral epicondyle. No fracture or malalignment. No gross elbow joint effusion. Soft tissues: Question soft tissue swelling medially. No foreign body. IMPRESSION: 1. No osseous injuries. 2. Osteopenia and minor osteoarthritic spurring. 3. Question medial soft tissue swelling.
--- NOTE | 2023-11-06 20:13 | XR_ITS ---
PROCEDURE INFORMATION: Exam: XR Left Humerus Exam date and time: 11/06/2023 8:29 PM Age: 78 years old Clinical indication: Injury or trauma; Fall; Blunt trauma (contusions or hematomas); Arm, upper; Left; Additional info: Fall, L proimal humerus through forearm pain TECHNIQUE: Imaging protocol: Radiologic exam of the left humerus. Views: 2 or more views. COMPARISON: CR XR HUMERUS LT 03/06/2022 5:47 PM FINDINGS: Bones/joints: Osteopenia. No fracture or malalignment. Mild inferior spurring at the left glenohumeral joint. AC joint well aligned. Visualized ribs intact. Mild enthesopathy at the greater tuberosity. Soft tissues: No gross soft tissue abnormalities. IMPRESSION: 1. No acute findings. 2. Osteopenia and minor osteoarthritic changes.
--- NOTE | 2023-11-06 20:13 | XR_ITS ---
PROCEDURE INFORMATION: Exam: XR Left Forearm Exam date and time: 11/06/2023 8:24 PM Age: 78 years old Clinical indication: Injury or trauma; Fall; Blunt trauma (contusions or hematomas); Arm, lower; Left; Additional info: Fall, L proimal humerus through forearm pain TECHNIQUE: Imaging protocol: Radiologic exam of the left forearm. Views: 2 views. COMPARISON: CR XR ELBOW LT MIN 3V 11/06/2023 8:24 PM FINDINGS: Bones/joints: Osteopenia. No evidence of acute fracture or malalignment. Anatomic variant 3 mm negative ulnar variance at the wrist. Moderate-severe chronic osteoarthritic change at the 1st CMC joint and STT joint. Soft tissues: No gross soft tissue abnormalities. IMPRESSION: 1. No acute findings. 2. Osteopenia and osteoarthritic changes.
--- NOTE | 2023-11-06 20:13 | CT_ITS ---
PROCEDURE INFORMATION: Exam: CT Maxillofacial Without Contrast Exam date and time: 11/06/2023 8:24 PM Age: 78 years old Clinical indication: Injury or trauma; Fall; Other: Left midface pain; Additional info: Fall, left midface pain TECHNIQUE: Imaging protocol: Computed tomography of the face without contrast. Radiation optimization: All CT scans at this facility use at least one of these dose optimization techniques: automated exposure control; mA and/or kV adjustment per patient size (includes targeted exams where dose is matched to clinical indication); or iterative reconstruction. COMPARISON: CT HEAD/BRAIN WO CON 11/06/2023 8:22 PM FINDINGS: Orbital cavities: Orbits are normal. Globes are unremarkable. Paranasal sinuses: A mildly inwardly depressed comminuted segmental fracture of the anterior aspect of the left maxillary sinus noted including the nasal maxillary junction. Mildly comminuted fracture of the posterolateral wall of the maxillary sinus also noted with slight inward depression of a short fracture fragment. A essentially nondisplaced fracture of the posterior aspect of the left maxillary sinus just anterior to the pterygoid plates also noted. Associated small to moderate fluid level compatible with hemorrhage. Considerable soft tissue air noted in the adjacent infratemporal region and submandibular region. No other definite fracture seen. Bones: See Paranasal sinuses finding. Soft tissues: Unremarkable. IMPRESSION: Multifocal fractures of the left maxillary sinus involving the anterior, posterolateral, and posterior harmon with associated maxillary sinus hemorrhage and adjacent extensive soft tissue air. No other acute abnormality.
--- NOTE | 2023-11-06 20:13 | CT_ITS ---
PROCEDURE INFORMATION: Exam: CT Cervical Spine Without Contrast Exam date and time: 11/06/2023 8:26 PM Age: 78 years old Clinical indication: Injury or trauma; Fall; Blunt trauma; Additional info: Fall, struck head, dazed, no loc TECHNIQUE: Imaging protocol: Computed tomography of the cervical spine without contrast. Radiation optimization: All CT scans at this facility use at least one of these dose optimization techniques: automated exposure control; mA and/or kV adjustment per patient size (includes targeted exams where dose is matched to clinical indication); or iterative reconstruction. COMPARISON: MR CERVICAL SPINE WO CON 04/03/2022 4:07 PM FINDINGS: Bones: No evident fracture. Degenerative changes of the C-spine most pronounced at C5-C6 with associated bulging disc spur complex and [id number] central canal narrowing.. Otherwise unremarkable CT of the C-spine with no fracture evident. Alignment and vertebral body heights are intact. Lungs: Lung apices are normal. Soft tissues: Unremarkable. IMPRESSION: Degenerative changes. No acute abnormality.
--- NOTE | 2023-11-06 20:13 | XR_ITS ---
PROCEDURE INFORMATION: Exam: XR Left Femur Exam date and time: 11/06/2023 8:26 PM Age: 78 years old Clinical indication: Injury or trauma; Fall; Blunt trauma; Hip and knee; Left; Additional info: Fall, L hip and knee pain TECHNIQUE: Imaging protocol: Radiologic exam of the left femur. Views: 2 views. COMPARISON: CR XR FEMUR LT 2V 03/06/2022 5:52 PM FINDINGS: Bones/joints: Osteopenia. No evidence of acute fracture or malalignment. Mild enthesopathy at the greater trochanter. Left knee arthroplasty without gross hardware complication or change. Soft tissues: No gross soft tissue abnormalities. IMPRESSION: No acute findings.
[2023-11-06] MEDS: ACETAMINOPHEN 500MG TAB 1000 MG PO (20:48)
[2023-11-06] MEDS: IBUPROFEN 600 MG TABLET PO (20:48)
--- NOTE | 2023-11-06 21:00 | [facility].EDGENADL ---
Discharge Plan Disposition Patient Disposition: Home, Self-Care Prescriptions Prescriptions: No Action atorvastatin 10 mg tablet 10 mg PO DAILY Patient Comments: TAKE 1 TABLET BY MOUTH EVERY DAY FOR 90 DAYS hydrochlorothiazide 25 mg tablet 25 mg PO DAILY fluticasone propionate 50 mcg/actuation spray,suspension 1 spray intranasal DAILY Patient Comments: SPRAY 1 SPRAY INTO EACH NOSTRIL EVERY DAY omeprazole-sodium bicarbonate [Zegerid OTC] 20-1.1 mg-gram Capsule 1 cap PO DAILY loratadine 10 mg tablet 10 mg PO DAILY Rx Instructions: TAKE 1 TABLET BY MOUTH EVERY DAY FOR 30 DAYS meclizine 25 mg tablet 25 mg PO QID PRN (Reason: dizziness) Qty: 30 0RF Referrals Follow up/Referrals: Fernando Matson MD [Primary Care Provider] - See instructions Activity Restrictions/Add. Instructions Additional Instructions/Restrictions: Follow-up with Dr. Miradna at [facility]. They will call you to schedule an appointment. In the meantime, follow sinus precautions: No snorting, sniffing, blowing the nose, or using straws. Use nasal saline rinses, such as Neti pot or bottle. Call your family doctor to establish care for this visit to the emergency department and schedule follow-up within 48 hours to ensure improvement. If you have any worsening of your condition or any other concerning signs or symptoms, return to the emergency department or your primary care doctor for further evaluation. Clinical Impressions Clinical Impression: Closed fracture of maxillary sinus Discharge ED Provider: Ronal Macias General Adult HPI General Chief complaint: Fall Stated complaint: AO 11/06/23 1900 fell injury face,elbow,knee Time Seen by Provider: 11/06/23 19:42 Mode of Arrival: Ambulatory Source of Information: Patient Limitations: No Limitations Description of Symptoms (Recalled from ER Triage Doc. by RN): Pt. presents to the ED with c/o fall on concrete. landed on left side. Pt denies LOC. Has abrasions to left eyebrow, left cheek, left elbow, left knee, and left side of chest hurts. History of Present Illness HPI narrative: Please note that above description of symptoms, in this electronic medical record under categorization of recalled from ER triage doctor by RN are reflective of an initial nursing assessment, however, is not reflective of my full history and physical exam that was personally taken and clarified. Consequentially, this preceding description of symptoms, which may include the patient's categorized chief complaint in the EMR, do not reflect my personal clinical impression, and the ultimate description of history of present illness and patient stated complaints should be deferred to this section of the note. Unless stated otherwise or congruent with this section of the note, additional signs, symptoms, or incongruence should be interpreted as inaccurate with my clinical impression. Related Data Home Medications Medication Instructions Recorded Confirmed atorvastatin 10 mg tablet 10 mg PO DAILY Cholesterol 12/04/21 09/07/23 loratadine 10 mg tablet 10 mg PO DAILY 07/31/23 09/07/23 omeprazole 20 mg-sodium 1 cap PO DAILY 07/31/23 09/07/23 bicarbonate 1.1 gram capsule (Zegerid OTC) fluticasone propionate 50 1 spray intranasal DAILY 09/07/23 09/07/23 mcg/actuation nasal spray,suspension hydrochlorothiazide 25 mg tablet 25 mg PO DAILY 09/07/23 09/07/23 Previous Rx's Medication Instructions Recorded meclizine 25 mg tablet 25 mg PO QID PRN dizziness #30 tabs 09/29/23 Allergies Allergy/AdvReac Type Severity Reaction Status Date / Time barium iodide [BARIUM IODIDE] Allergy Mild Verified 07/14/23 10:40 [facility] Disclaimer: The information contained in this section may have been updated after the patient was seen, as this information can be updated by other users. Medical History (Updated 11/06/23 @ 22:42 by Ronal Macias MD) Hypertension HLD (hyperlipidemia) Degenerative disc disease Family History Other Cancer Coronary artery disease Heart attack Hypertension Stroke Social History Smoking Status: Never smoker alcohol intake: never substance use type: denies use current occupational status: retired Travel in the last 8 weeks: None ROS Obtained: Yes All systems reviewed & no additional complaints except as documented Physical Exam General General appearance: alert and in no apparent distress Head Head exam: normocephalic and other (0.5 cm laceration overlying left eyebrow) Eye Eye exam: Present normal appearance, PERRL and EOMI ENT ENT exam: Present mucous membranes moist and other (Midface tenderness without deformity no trismus or malocclusion.) Neck Neck exam: Present normal inspection, full ROM and trachea midline; Absent tenderness Chest Chest inspection: Present tenderness (Left superior/anterior chest wall tenderness without of injury) Respiratory Respiratory exam: Present normal lung sounds bilaterally; Absent respiratory distress, wheezes, stridor, accessory muscle use or prolonged expiratory phase Cardiovascular Cardiovascular exam: Present normal rhythm Abdominal Exam Abdominal exam: Present soft; Absent distention, tenderness, guarding, rebound or rigidity Extremities Exam Extremities exam: Present other (Visual skin abrasions over left upper extremity and left lower extremity. Tenderness about left knee and left elbow. No outward deformity.); Absent edema Neurological Exam Neurological exam: Present alert, oriented X3, CN II-XII intact and normal gait; Absent motor sensory deficit Skin Skin exam: Present warm and dry; Absent diaphoresis or erythema Medical Decision Making Medical Records Medical records reviewed: Yes I reviewed the patient's medical records. John Paul Inquiry Pt receiving controlled substance: No John Paul was queried for this patient: No Vital Signs: 11/06/23 19:36 11/06/23 19:42 11/06/23 20:00 Temperature 97.5 F L Temperature Source Oral Pulse Rate 82 89 Pulse Rate [Right Radial] 95 H Respiratory Rate 20 18 20 Blood Pressure 158/84 H 149/81 H Blood Pressure [Right Arm] 158/84 H Blood Pressure Mean [Right Arm] 108 Blood Pressure Source Blood Pressure Source [Right Arm] Automatic Cuff Blood Pressure Position Blood Pressure Position [Right Arm] Sitting 02 Sat by Pulse Oximetry 99 99 98 Oxygen Delivery Method Room Air Room Air Room Air 11/06/23 22:35 Temperature 97.8 F Temperature Source Oral Pulse Rate 84 Pulse Rate [Right Radial] Respiratory Rate 18 Blood Pressure 148/88 H Blood Pressure [Right Arm] Blood Pressure Mean [Right Arm] Blood Pressure Source Automatic Cuff Blood Pressure Source [Right Arm] Blood Pressure Position Sitting Blood Pressure Position [Right Arm] 02 Sat by Pulse Oximetry Oxygen Delivery Method Room Air Orders (Tests/Meds): ED MEDICATIONS Discontinued Medications Generic Name Dose Route Start Last Admin Trade Name Freq PRN Reason Stop Dose Admin Acetaminophen 1,000 mg 11/06/23 20:13 11/06/23 20:48 Acetaminophen 500mg Tab PO 11/06/23 20:14 1,000 mg ONCE ONE Administration Ibuprofen 600 mg 11/06/23 20:13 11/06/23 20:48 Ibuprofen 600 Mg Tablet PO 11/06/23 20:14 600 mg ONCE ONE Administration ORDERS Category Date Time Status CT cervical spine wo con Stat Cat Scan 11/06/23 20:[address] chest wo con Stat Cat Scan 11/06/23 20:[address] facial bones wo con Stat Cat Scan 11/06/23 20:[address] head/brain wo con Stat Cat Scan 11/06/23 20:13 Completed Elbow XR left mininum 3 views [XR elbow LT min 3V] Stat Exams 11/06/23 20:13 Completed Femur XR left 2 views [XR femur LT 2V] Stat Exams 11/06/23 20:13 Completed Forearm XR left 2 views [XR forearm LT 2V] Stat Exams 11/06/23 20:13 Completed Hip XR left minimum 2 views [XR hip LT 2-3V w/pelvis] Exams 11/06/23 20:13 Completed Stat Humerus XR left [XR humerus LT] Stat Exams 11/06/23 20:13 Completed Knee XR left 3 views [XR knee LT 3V] Stat Exams 11/06/23 20:13 Completed Medical Decision Narrative: 78-year-old female no relevant medical history presenting with fall. She states that she was stepping down concrete steps, lost her balance and fell forward. She landed on her left side including left face, left chest, left elbow, left knee. Did not lose consciousness. She is not on anticoagulation. She stated that she has maximal tenderness in left side of her face over the zygomatic arch, no entrapment, double vision, nosebleeding, jaw pain, or any other concerns. Has not taken anything for the pain. Also having mild pain over left shoulder, left elbow, left knee. History was obtained via conversation with patient and son. On arrival, patient hemodynamically stable, alert, oriented x4, appropriate, GCS 15, moving all extremities spontaneously, pupils equal and reactive to light. Full physical exam performed and significant for well-appearing woman in no acute distress. She has small laceration overlying left eyebrow is hemostatic. Tenderness to left mid face. EOMs are intact and full. No ocular involvement. No jaw involvement, malocclusion, intraoral trauma. Bilateral TMs within normal limits. No neck tenderness. Head otherwise atraumatic. Anterior chest wall tenderness left-sided but bilateral breath sounds and normal cardiac exam otherwise. She is neurologically intact. She does have superficial abrasions left upper extremity from elbow down to wrist and hand, as well as left knee. Ambulatory. Pelvis is stable. Differential includes fracture, sprain, strain, concussion, intracranial bleed, cervical spine injury, among others. Patient was given Tylenol Motrin for symptomatic management and correction of underlying abnormalities. Workup independently interpreted and significant for maxillary sinus fractures with blood products in the maxillary sinus. No orbital fractures. No intracranial bleed. No bony abnormality seen over the imaged left upper left lower extremities. See radiology read for full review of final results. On reevaluation, patient mild to moderate pain, no acute worsening. [facility] was contacted and case was discussed at length with face surgery who is on-call, recommended outpatient management with sinus precautions in the meantime. Given patient presentation, workup, history, this most likely represents facial fractures after fall. Because patient at baseline without signs or symptoms of clinical decompensation, deemed appropriate for discharge. Results were relayed to patient who voiced understanding and were agreeable to outpatient management and follow up. I discussed my clinical impression with patient and answered all questions. At this time, the evidence for any other entities in the differential is insufficient to warrant any further testing or ED observation. This was explained as well. Advisory was given that persistent or worsening symptoms require further evaluation. I confirmed the understanding of this discussion. [employer]ice [employer]er disclaimer Much of this encounter note is an electronic ventilation equipment tender spoken language to printed text. Electronic ventilation equipment tender of the spoken language may permit errors. Although I have reviewed the note, some errors may still exist. Critical Care Critical Care Time Critical Care Time: No
[2023-11-06 22:35] VITALS: BP 148/88; PULSE 84; RESP 18; TEMP 36.6; O2SAT 95
== END 2023-11-06 22:54 | disposition home or self-care (01) ==
PROVIDERS: Emergency Provider Emergency Medicine; PCP Family Medicine
DX: S02.40DA Maxillary fracture, left side, initial encounter for closed fracture (principal); R07.89 Other chest pain; M25.512 Pain in left shoulder; S80.212A Abrasion, left knee, initial encounter; S50.312A Abrasion of left elbow, initial encounter; W10.8XXA Fall (on) (from) other stairs and steps, initial encounter
CPT/HCPCS: 70450; 70486; 71250; 72125; 73060; 73080; 73090; 73502; 73552; 73562; 99285

== ENCOUNTER 2023-11-11 15:28 | Outpatient (CLI) | payer MEDICARE, SELFPAY ==
--- NOTE | 2023-11-11 15:37 | XR_ITS ---
FINAL REPORT CLINICAL HISTORY: COUGH; UNSPECIFIED TYPE, RECENT FALL, LT RIB PAIN COMPARISON: None FINDINGS: A single view of the chest with 3 views of the left ribs were obtained. There is no acute cardiopulmonary process. No pneumothorax is identified. No displaced rib fracture identified. IMPRESSION: No displaced rib fracture or pneumothorax is seen. Reviewed, Interpreted and Dictated by Marck Glasgow III, MD Transcribed by Holly Ferreira Authenticated and [facility]
== END 2023-11-11 23:59 | disposition home or self-care (01) ==
LOC: RAD 15:30
PROVIDERS: PCP Family Medicine; Visit Provider Physician Assistant
DX: R05.9 Cough, unspecified (principal)
CPT/HCPCS: 71101

== ENCOUNTER 2024-11-01 15:54 | Emergency (ER) | payer MEDICARE, SELFPAY ==
[2024-11-01 15:58] VITALS: BP 146/84; PULSE 81; RESP 18; TEMP 36.2; O2SAT 97; BMI 27.8
--- NOTE | 2024-11-01 16:13 | ECG_ITS ---
APPROVED REPORT Exam: Resting ECG HR:83 bpm ECG Measurements Heart Rate 83 AXES MA 181 P 74 QRSd 109 QRS -64 QT 418 T 34 QTc 458 Conclusion SINUS RHYTHM LEFT AXIS DEVIATION [QRS AXIS < -30] LOW QRS VOLTAGE IN PRECORDIAL LEADS [QRS DEFLECTION < 1.0 mV IN CHEST LEADS] INCOMPLETE RIGHT BUNDLE BRANCH BLOCK [90+ ms QRS DURATION, TERMINAL R IN V1/V2, 40+ ms S IN I/aVL/V4/V5/V6] POSSIBLE ANTERIOR MYOCARDIAL INFARCTION , OF INDETERMINATE AGE [30 ms Q WAVE IN V3/V4, OR R < 0.2 mV IN V4] ABNORMAL ECG UNCONFIRMED REPORT Electronically signed by : Clarence Lr, 11/01/2024 20:25:30
[2024-11-01 16:25] VITALS: BP 123/65; BP 125/72; BP 127/69; PULSE 75; PULSE 82; PULSE 84
--- NOTE | 2024-11-01 16:25 | XR_ITS ---
PROCEDURE INFORMATION: Exam: XR Chest Exam date and time: 11/01/2024 4:43 PM Age: 79 years old Clinical indication: Sternal or substernal pain; Additional info: Dyspnea TECHNIQUE: Imaging protocol: Radiologic exam of the chest. Views: 1 view. COMPARISON: CR XR RIBS LT MIN 3V W CXR1V 11/11/2023 3:43 PM FINDINGS: Airway: Airways are patent. Lungs: Low lung volumes causes crowding of the bronchovascular structures. Remainder of the lungs are clear. Pleural spaces: Haziness in the left lung base with blunting of the left costophrenic angle. No right pleural effusion. There is no evidence of pneumothorax. Heart/Mediastinum: Mild cardiomegaly. Vasculature: Calcified aortic knob. Bones/joints: Tendon anchor in the right humeral head appears in place. 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 No acute skeletal abnormality or aggressive osseous lesion. IMPRESSION: Haziness in the left lung base with blunting of the left costophrenic angle. Suggestive of a left pleural effusion and left basal atelectasis. Superimposed infectious pneumonic process should be entertained in the appropriate clinical setting.
--- NOTE | 2024-11-01 16:27 | HMH.EDGENADL ---
Discharge Plan Disposition Patient Disposition: Home, Self-Care Prescriptions Prescriptions: New cefdinir 300 mg capsule 300 mg PO BID 7 Days Qty: 14 0RF No Action erythromycin 5 mg/gram (0.5 %) ointment 0.5 inch ophthalmic (eye) BID Qty: 3.5 0RF sulfacetamide sodium 10 % drops 1 drp ophthalmic (eye) Q4H 7 Days Qty: 5 0RF polymyxin B sulf-trimethoprim 10,000 unit- 1 mg/mL drops 2 drp Eye-Both Q6H 7 Days Qty: 10 0RF Rx Instructions: both eyes while awake; do not exceed 6 doses in 24 hours atorvastatin 10 mg tablet 10 mg PO DAILY Patient Comments: TAKE 1 TABLET BY MOUTH EVERY DAY FOR 90 DAYS hydrochlorothiazide 25 mg tablet 25 mg PO DAILY fluticasone propionate 50 mcg/actuation spray,suspension 1 spray intranasal DAILY Patient Comments: SPRAY 1 SPRAY INTO EACH NOSTRIL EVERY DAY omeprazole-sodium bicarbonate [Zegerid OTC] 20-1.1 mg-gram Capsule 1 cap PO DAILY loratadine 10 mg tablet 10 mg PO DAILY Rx Instructions: TAKE 1 TABLET BY MOUTH EVERY DAY FOR 30 DAYS Referrals Follow up/Referrals: Davis Gil MD [Physician, Ear, Nose, Throat] - See instructions Fernando Matson MD [Primary Care Provider, Medical] - See instructions Papi Lewis MD [Staff Physician, Cardiology] - See instructions Activity Restrictions/Add. Instructions Additional Instructions/Restrictions: You are diagnosed with a urinary tract infection today and antibiotics were sent into your pharmacy. Overall your lightheadedness and dizziness is possibly explained by that urinary tract infection however given your minimal symptoms it is also possible there is an alternative diagnosis such as an arrhythmia etc. I recommend you follow-up with cardiology to have a formal echocardiogram and Holter/event monitor to rule out any structural heart disease or arrhythmia. Your potassium level was mildly depressed please eat a normal diet and follow this up with your primary care doctor. Lastly you did have evidence of scarring on your right ear this is likely chronic but could be contributory to vestibular or balance dysfunction and your chronic hearing loss therefore recommend you follow-up with ENT as well. Overall no emergent or life-threatening condition was identified today and you are stable for outpatient management. Return with any significant worsening of your symptoms. Clinical Impressions Clinical Impression: UTI (urinary tract infection), Near syncope, Low ventricular voltage present on electrocardiography, Tympanic sclerosis, Hypokalemia Print Language Print Language: [place] Discharge ED Provider: Angelica Lr General Adult HPI General Chief complaint: Dizziness Stated complaint: Dizzy; Sick at Stomach Time Seen by Provider: 11/01/24 15:56 Mode of Arrival: Ambulatory Source of Information: Patient Description of Symptoms (Recalled from ER Triage Doc. by RN): PT presents for evaluation of dizziness and nausea. PT claims she has had a cough and congestion recently and took a nasal decongestion spray last night 10/31/2024 and hasnt felt right since. Pt stated the room is spinning. No history of vertigo. Pt has hearing aides. History of Present Illness HPI narrative: Patient is an 79-year-old female previously healthy presenting today with sudden lightheadedness nausea and dizziness. She denies any vertiginous symptoms. Has chronic hearing loss and wears hearing aids but denies any ear symptoms today. Has had a mild cough for the last several weeks but no fevers or chills or other systemic symptoms. Denies any chest pain or shortness of breath. Has had similar episodes of this in the past. States that a few days ago her activity monitor showed that she was inappropriately tachycardic may be skipping some beats. The symptoms have since resolved. She attributed this to a decongestant that she took nasally she is unsure as to exactly what that medication is. But symptoms were essentially gone for about a day and a half after taking that medication and began about an hour prior to arrival. States that she has had some balance issues since this began but otherwise coordination vision and neurologically no other symptoms. Related Data Home Medications ?Medication ?Instructions ?Recorded ?Confirmed atorvastatin 10 mg tablet 10 mg PO DAILY Cholesterol 12/04/21 08/26/24 loratadine 10 mg tablet 10 mg PO DAILY 07/31/23 08/26/24 omeprazole 20 mg-sodium 1 cap PO DAILY 07/31/23 08/26/24 bicarbonate 1.1 gram capsule (Zegerid OTC) fluticasone propionate 50 1 spray intranasal DAILY 09/07/23 08/26/24 mcg/actuation nasal spray,suspension hydrochlorothiazide 25 mg tablet 25 mg PO DAILY 09/07/23 08/26/24 Previous Rx's ?Medication ?Instructions ?Recorded erythromycin 5 mg/gram (0.5 %) eye 0.5 inch ophthalmic (eye) BID #3.5 08/26/24 ointment grams sulfacetamide sodium 10 % eye drops 1 drp ophthalmic (eye) Q4H 7 days 08/26/24 #5 mL polymyxin B sulfate 10,000 2 drp Eye-Both Q6H 7 days #10 mL 08/27/24 unit-trimethoprim 1 mg/mL eye drops cefdinir 300 mg capsule 300 mg PO BID 7 days #14 caps 11/01/24 Allergies Allergy/AdvReac Type Severity Reaction Status Date / Time barium iodide (BARIUM IODIDE) Allergy Mild Verified 08/26/24 09:24 [facility] Disclaimer: The information contained in this section may have been updated after the patient was seen, as this information can be updated by other users. Medical History , NURSE ADMINISTRATOR) Hypertension HLD (hyperlipidemia) Degenerative disc disease Family History , NURSE ADMINISTRATOR) Coronary artery disease Heart attack Cancer Hypertension Stroke Social History , NURSE ADMINISTRATOR) Smoking Status: Never smoker alcohol intake: never substance use type: denies use current occupational status: retired Travel in the last 8 weeks?: None Have you lived/traveled outside [place] in past 30 days?: No Contact w/someone who lives/traveled outside US past 30 days?: No Exposure to someone with infectious disease in past 14 days?: No Do you have a fever (greater than 100.4 F or 38 C)?: No Have you tested positive for COVID-19?: No Exposed to someone with COVID-19 in past 14 days?: No Do you have a sore throat?: No Do you have a cough?: No Do you have any weakness?: No Do you have any diarrhea?: No Are you experiencing any unusual bleeding?: No Do you have any muscle aches/pain?: No Do you have any abdominal pain?: No Are you experiencing loss of taste or smell?: No Other Medical History Have you received the Flu Vaccine for this season: No Have you received the Pneumonia Vaccine: Yes ROS Obtained: Yes All systems reviewed & no additional complaints except as documented Physical Exam General General appearance: alert and in no apparent distress ENT ENT exam: Present other (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 age-indeterminate) Respiratory Respiratory exam: Present normal lung sounds bilaterally; Absent respiratory distress Cardiovascular Cardiovascular exam: Present regular rate and normal rhythm Abdominal Exam Abdominal exam: Present soft; Absent distention or tenderness Neurological Exam Neurological exam: Present alert, oriented X3, CN II-XII intact, normal gait and other (Finger-nose [id number] normal bilaterally normal Romberg and gait patient was not symptomatic upon standing); Absent motor sensory deficit Medical Decision Making Medical Records Screening: Per USPSTF and CDC recommendations, given the prevalence of disease in our region, it is our hospital?s policy to screen for HIV and viral Hepatitis for all patients aged 18 and over and those with ongoing risk factors. John [place] Inquiry Pt receiving controlled substance: No Vital Signs: 11/01/24 15:58 11/01/24 16:25 11/01/24 17:00 Temperature 97.2 F L Temperature Source Oral Pulse Rate 81 Pulse Rate [Orthostatic Lying Left] 75 Pulse Rate [Orthostatic Sitting Left] 82 Pulse Rate [Orthostatic Standing Left] 84 Pulse Rate [Right] 81 Respiratory Rate 18 18 Blood Pressure 137/71 Blood Pressure [Orthostatic Lying Right Arm] 123/65 Blood Pressure [Orthostatic Sitting Right Arm] 127/69 Blood Pressure [Orthostatic Standing Right Arm] 125/72 Blood Pressure [Right Arm] 146/84 H Blood Pressure Mean 93 Blood Pressure Mean [Right Arm] 104 02 Sat by Pulse Oximetry 97 96 Oxygen Delivery Method Room Air Lab Data Lab results reviewed: Yes I reviewed the patient's lab results. Lab Results 11/01/24 16:41: WBC 6.3, RBC 4.64, Hgb 14.0, Hct 40.9, MCV 88.1, MCH 30.2, MCHC 34.2, RDW 13.8, Plt Count 250, MPV 9.1, Neut % (Auto) 67.0, Lymph % (Auto) 20.7, [place] % (Auto) 8.5, Eos % (Auto) 2.4, Baso % (Auto) 1.1, Neut # (Auto) 4.2, Lymph # (Auto) 1.3, [place] # (Auto) 0.5, Eos # (Auto) 0.2, Baso # (Auto) 0.1, Sodium 135 L, Potassium 3.0 L, Chloride 100, Carbon Dioxide 29, Anion Gap 9.0, BUN 18 H, Creatinine 0.90, Estimated Creat Clear 49, Estimated GFR 60, Est GFR ( Amer) 73, Glucose 118 H, Calcium 8.9, Phosphorus 3.5, Magnesium 2.1, Total Bilirubin 0.6, AST 29, ALT 18, Alkaline Phosphatase 96, Troponin I 0.02, NT-Pro-B Natriuret Pep 688 H, Total Protein 7.5, Albumin 4.4, Globulin 3.1, Albumin/Globulin Ratio 1.4, TSH 2.13 11/01/24 16:56: Urine Color Yellow, Urine Appearance Clear, Urine pH 6.0, Ur Specific [place] 1.020, Urine Protein Negative, Urine Glucose (UA) Negative, Urine Ketones Negative, Urine Blood Trace-i, Urine Nitrate Negative, Urine Bilirubin Negative, Urine Urobilinogen 0.2, Ur Leukocyte Esterase 3+ A, Urine RBC 5-10, Urine WBC 50-100, Ur Squamous Epith Cells 10-20, Urine Bacteria 2+ 11/01/24 16:41 11/01/24 16:41 Orders (Tests/Meds): ED MEDICATIONS Discontinued Medications Generic Name Dose Route Start Last Admin Trade Name Freq PRN Reason Stop Dose Admin Sodium Chloride 500 mls @ 999 mls/hr 11/01/24 16:25 11/01/24 16:56 Sod Chlor 0.9% 1000ml Bag IV 11/01/24 16:55 999 mls/hr .Q31M ONE Administration Potassium Chloride 60 meq 11/01/24 17:20 11/01/24 17:33 Potassium Chloride 20meq Tab PO 11/01/24 17:21 60 meq ONCE ONE Administration ORDERS Category Date Time Status CT chest wo con Stat Cat Scan 11/01/24 17:28 Taken CXR --portable [XR chest portable] Stat Exams 11/01/24 16:25 Completed POCUS Point of Care (ER Only) Stat Exams 11/01/24 16:25 Completed BNP [NT Pro Brain Natriuretic Pep.] Stat Lab 11/01/24 16:41 Completed CBC w/Auto Diff [Complete Blood Count Auto Diff] Stat Lab 11/01/24 16:41 Completed CMP [Comprehensive Metabolic Panel] Stat Lab 11/01/24 16:41 Completed Hemoglobin A1C Stat Lab 11/01/24 16:41 Received Magnesium Stat Lab 11/01/24 16:41 Completed Phosphorous Stat Lab 11/01/24 16:41 Completed Rapid PCR Covid and Flu A/B Stat Lab 11/01/24 16:47 Received TSH [Thyroid Stimulating Hormone] Stat Lab 11/01/24 16:41 Completed Trop I [Troponin I] Stat Lab 11/01/24 16:41 Completed Troponin I Q3H Lab 11/01/24 19:30 Ordered Troponin I Q3H Lab 11/01/24 22:30 Ordered UA [Urinalysis and Microscopic] Stat Lab 11/01/24 16:56 Completed Urine Culture Stat Micro 11/01/24 16:56 Received ECG Data Tracing #1: I reviewed this ECG and interpreted as documented below: Ventriculitis 83 normal sinus rhythm there is left axis deviation and low voltage QRS in precordial leads also an incomplete right bundle branch block no definitive ST elevations or depressions or acute ischemic changes noted possible anterior Q waves age-indeterminate Medical Decision Narrative: 79-year-old well-appearing female with normal neurologic exam presents today with sudden dizziness and lightheadedness. EKG does not demonstrate any significant arrhythmia however does have low voltage QRS and possible anterior Q waves which are nonspecific I will do a bedside echo to make sure that she does not have a large pericardial effusion or evidence of heart failure. BNP will also be added. Arrhythmia certainly still in the differential despite seeing nothing on current EKG and she will have follow-up with cardiology to get a formal echo and event/Holter monitor. Electrolytes TSH troponin all will be administered in addition to orthostatic vital signs. 500 cc of bolus fluids will be given as well. Neurologically her exam is completely normal not concerned about a posterior circulation stroke. Additionally vertiginous symptoms could be secondary to vestibular dysfunction associated with her right sclerotic tympanic membrane. ENT follow-up will be appropriate as well for this patient. Reassessment 601 chest x-ray performed which I personally interpreted which shows a left basilar haziness concern for possible pneumonia therefore noncontrasted CT scan was ordered to confirm or exclude pneumonia this was performed I personally interpreted this no evidence of any dense consolidation or evidence of lung parenchymal disease therefore pneumonia is not a diagnosis at this point. Urinalysis was consistent with positive leukocyte esterase and significant white blood cells however there is some squamous cell epithelial cells in the urine which could be contaminated. Patient is minimally symptomatic but family states that when she has had the symptoms in the past she has had an bacterial infection . We offered to repeat this however they opted to go ahead and treat this which I think is reasonable. Therefore cefdinir has been sent to the pharmacy. Potassium was mildly depressed and this was replaced. Could be contributory to an arrhythmia which cannot be ruled out at this point therefore cardiology follow-up has been advised as well. Lastly regarding her sclerosis of her right tympanic membrane which could have some vestibular dysfunction associated with this or chronic hearing loss that she is known to have she has been given a follow-up with ENT. Overall no emergent medical condition identified specifically neurovascular cardiovascular emergency identified today. Antibiotics were sent to her pharmacy return precautions emphasized and patient was discharged in stable and improved condition. Procedures Miscellaneous Procedure Procedure Performed: Limited cardiac ultrasound Indication: Lightheadedness low voltage QRS and EKG Identified structures: The heart was visualized in the parasternal long axis, parastenal short axis, apical four chamber and subxyphiod views. The IVC was visualized in the short axis and long axis at its entry into the right atrium. Findings: Normal LVEF no severe right heart strain no definitive moderate or large pericardial effusion noted Impression: Unremarkable limited ultrasound of the heart Images were saved to permanent archive The study was technically adequate CPT: 77863-53 This study was performed by me, and I personally interpreted all images/videos. Based on my clinical judgement, these images were adequate and did not necessitate further imaging. Critical Care Critical Care Time Critical Care Time: No
[2024-11-01 16:52] LABS: Coronavirus 19, PCR Not Detected (NotDetected); Influenza A, PCR Not Detected (NotDetected); Influenza B, PCR Not Detected (NotDetected)
[2024-11-01 16:54] LABS: Basophils # 0.1 K/mm3 (0-0.2); Basophils % 1.1 % (0.1-2.0); Eosinophils # 0.2 Kmm3 (0.0-0.4); Eosinophils % 2.4 % (0.1-12.0); Hematocrit 40.9 % (37.0-47.0); Immature Granulocytes # 0.02 10^3uL; Immature Granulocytes % 0.3 %; Lymphocytes # 1.3 K/mm3 (0.7-4.5); Lymphocytes % 20.7 % (10-50); Mean Corpuscular HGB Conc 34.2 g/dL (31.8-35.4); Mean Corpuscular Hemoglobin 30.2 pg (27.0-31.2); Mean Corpuscular Volume 88.1 fl (81-99); Mean Platelet Volume 9.1 fl (7.4-10.4); Monocytes # 0.5 K/mm3 (0.1-1.0); Monocytes % 8.5 % (1.7-9.3); Neutrophils # 4.2 K/mm3 (1.8-7.8); Nucleated Red Blood Cells # 0 10^3/uL; Nucleated Red Blood Cells % 0 %; Platelet Count 250 K/mm3 (142-424); Red Blood Count 4.64 M/mm3 (4.20-5.40); Red Cell Distribution Width 13.8 % (11.5-17.5); Red Cell Distribution Width-SD 44.3 fL; White Blood Count 6.3 K/mm3 (4.8-10.8)
[2024-11-01] MEDS: 0.9 % SODIUM CHLORIDE 1000ML 500 ML 999 ML IV (16:56)
[2024-11-01 17:00] VITALS: BP 137/71; PULSE 81; RESP 18; O2SAT 96
[2024-11-01 17:00] LABS: Microscopic, Urine URINE MICROSCOPIC (MICROSCOPIC)
[2024-11-01 17:03] LABS: Bilirubin,Urine Negative (Negative); Blood, Urine TRACE-I (Negative); Color,Urine YELLOW (Yellow); Glucose,Urine (UA) Negative (Negative); Ketones,Urine Negative (Negative); Leukocyte Esterase,Urine 3+ (Negative); Nitrate,Urine Negative (Negative); Protein,Urine Negative (Negative); Urobilinogen,Urine 0.2 EU/dl (0.2)
[2024-11-01 17:03] LABS: Alanine Aminotransferase 18 U/L (12-78); Albumin Level 4.4 g/dl (3.5-5.0); Albumin/Globulin Ratio 1.4 (1.1-1.8); Alkaline Phosphatase 96 U/L (38-126); Aspartate Amino Transferase 29 U/L (14-36); Bilirubin,Total 0.6 mg/dl (0.2-1.3); Blood Urea Nitrogen 18 mg/dl (7-17); Calcium 8.9 mg/dl (8.4-10.2); Carbon Dioxide 29 mmol/L (22.0-30.0); Chloride 100 mmol/L (98-107); Creatinine Clearance Estimated 49 mL/min (50-200); Estimated Glomerular Filt Rate 60 ml/min (>60); GFR (African American) 73 ML/MIN (>60); Globulin 3.1 g/dL (1.3-3.2); Glucose 118 mg/dl (74-100); Magnesium 2.1 mg/dl (1.6-2.3); Phosphorous 3.5 mg/dl (2.5-4.5); Sodium 135 mmol/L (136-145); Total Protein,Serum 7.5 g/dl (6.3-8.2)
[2024-11-01 17:05] LABS: Appearance,Urine Clear (Clear)
[2024-11-01 17:13] LABS: NT Pro Brain Natriuretic Pep. 688 pg/mL (0-450)
[2024-11-01 17:15] LABS: Troponin I 0.02 ng/ml (0.00-0.034)
[2024-11-01 17:21] LABS: Bacteria,Urine 2+ /lpf; WBC,Urine 50-100 #/hpf (0-3)
--- NOTE | 2024-11-01 17:28 | CT_ITS ---
PROCEDURE INFORMATION: Exam: CT Chest Without Contrast; Diagnostic Exam date and time: 11/01/2024 5:51 PM Age: 79 years old Clinical indication: Shortness of breath; Additional info: F/u abnormal cxr, possible pna TECHNIQUE: Imaging protocol: Diagnostic computed tomography of the chest without contrast. Radiation optimization: All CT scans at this facility use at least one of these dose optimization techniques: automated exposure control; mA and/or kV adjustment per patient size (includes targeted exams where dose is matched to clinical indication); or iterative reconstruction. COMPARISON: CT CHEST WO CON 11/06/2023 8:28 PM FINDINGS: Lungs: Mild scattered subsegmental atelectasis in the bilateral lower lobes. Lungs are otherwise clear. Pleural spaces: Unremarkable. No pneumothorax. No pleural effusion. Heart: Unremarkable. No cardiomegaly. No pericardial effusion. Coronary arteries: Moderate diffuse coronary artery calcifications. Lymph nodes: Unremarkable. No enlarged lymph nodes. Vasculature: Mild scattered atherosclerotic calcification throughout the thoracic aorta. No aneurysm Intestine: Moderate diverticulosis noted throughout the visualized portion of the colon in the upper abdomen. Bones/joints: Mild multilevel degenerative disc changes throughout the midthoracic spine. Severe degenerative disc changes in the lower cervical spine. No vertebral body compression. No acute fracture. Soft tissues: Unremarkable. IMPRESSION: No acute abnormality. Incidental findings as noted.
[2024-11-01 17:33] LABS: Thyroid Stimulating Hormone 2.13 uIU/mL (0.465-4.68)
[2024-11-01] MEDS: POTASSIUM CHLORIDE 20MEQ TAB 60 MEQ PO (17:33)
[2024-11-01 18:03] VITALS: BP 129/69; PULSE 63; RESP 18; TEMP 36.8; O2SAT 97
[2024-11-01 18:21] LABS: Hemoglobin A1C 5.9 % (4.0-6.0)
--- NOTE | 2024-11-05 09:51 | PC.NURSE ---
I spoke with about the pts urine culture, no change needed in treatment plan.
== END 2024-11-01 18:11 | disposition home or self-care (01) ==
PROVIDERS: Emergency Provider Student in an Organized Health Care Education/Training Program; PCP Family Medicine
DX: N39.0 Urinary tract infection, site not specified (principal); R55 Syncope and collapse; R94.31 Abnormal electrocardiogram [ECG] [EKG]; H74.09 Tympanosclerosis, unspecified ear; E87.6 Hypokalemia
CPT/HCPCS: 71045; 71250; 80053; 81001; 83036; 83735; 83880; 84100; 84443; 84484; 85025; 87086; 87088; 87186; 87636; 93005; 99284; J7030